=== PATIENT | female | born 1975 | race Caucasian/White ===

== ENCOUNTER 2021-02-17 12:20 | Inpatient (IN) | payer BC, SELFPAY ==
[2021-02-17] VITALS (10 sets, daily range): BP systolic 140–161; BP diastolic 93–118; PULSE 82–102; RESP 16–21; TEMP 36.1–36.7; O2SAT 87–99; BMI 28.3; BMI 28.4; BMI 27.6
--- NOTE | 2021-02-17 12:25 | EKG12_ITS ---
Test Reason : Blood Pressure : / mmHG Vent. Rate : 074 BPM Atrial Rate : 074 BPM P-R Int : 108 ms QRS Dur : 084 ms QT Int : 382 ms P-R-T Axes : 033 067 058 degrees QTc Int : 424 ms Sinus rhythm with short NM Otherwise normal ECG Confirmed by ASHKAN ROWLAND, ELISEO ([id number]), editorial specialist COLEEN ONTIVEROS ([id number]) on 02/19/2021 11:21:16 AM Referred By: JODY Confirmed By:ELISEO LUTHER MD
--- NOTE | 2021-02-17 12:50 | RAD_ITS ---
STUDY: X-RAY CHEST REASON FOR EXAM: Female, 45 years old. SOB TECHNIQUE: PA and lateral views of the chest. COMPARISON: None. FINDINGS: There is hyperinflation of the lungs consistent with chronic obstructive lung disease (COPD). Decreased bronchovascular markings in the right upper lobe suggestive of a bullous formation. There is no demonstrated pleural abnormality. Normal size heart. Normal mediastinum and jorge alberto. Normal visualized pulmonary arteries. Normal visualized aortic arch and descending thoracic aorta. Normal visualized thoracic spine. Prior laminectomy and fusion in the lower cervical spine. There is no demonstrated abnormality of the visualized soft tissue structures of the upper abdomen. RAD/Chest PA and Lateral IMPRESSION: Hyperinflation. The lungs are clear. Electronically Signed: Luis Gomez MD at 13:04 EDT , Service support ,
[2021-02-17] MEDS: Ipratropium/Albuterol Sulfate 3 ML AMPUL.NEB INHALATION (14:58)
[2021-02-17] MEDS: Albuterol 2.5 MG/3 ML VIAL.NEB. INHALATION ×2 (15:10→15:48)
[2021-02-17] MEDS: predniSONE 20 MG Tablet 40 MG PO (15:22)
--- NOTE | 2021-02-17 16:02 | EKG12_ITS ---
Test Reason : REPEAT Blood Pressure : / mmHG Vent. Rate : 083 BPM Atrial Rate : 083 BPM P-R Int : 108 ms QRS Dur : 084 ms QT Int : 342 ms P-R-T Axes : 084 062 047 degrees QTc Int : 401 ms Sinus rhythm with short MT with Premature atrial complexes with Aberrant conduction Possible Left atrial enlargement Nonspecific ST abnormality Abnormal ECG Confirmed by ASHKAN ROWLAND, ELISEO ([id number]), state editor COLEEN ONTIVEROS ([id number]) on 02/19/2021 11:19:10 AM Referred By: JODY Confirmed By:ELISEO LUTHER MD
--- NOTE | 2021-02-17 16:02 | ED.VIS.DYS ---
History of Present Illness Chief Complaint: Shortness of Breath Informant: Patient Onset: - Activity at onset: Exertion - Progressively worse and now wheezing at rest Timing: Continuous Quality: Wheezing Current Severity: Moderate Maximum Severity: Moderate Worsened by: Coughing, Exertion. Not Worsened By: Lying flat Relieved by: Rest. 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 Negative for: Fever Chest Pain: Tightness Narrative: 45-year-old female feels like her asthma has been progressively getting worse but she has had a significant cough with it. No fevers or chills, no loss of taste or smell, no myalgias, no rashes, no GI symptoms of diarrhea. No contact with Covid that she knows of, she has not had a, nor has she been vaccinated. States she works outside and usually by herself. Patient states she already was prescribed a Z-Luis for this and it did not help anything at all. - Past Medical History (1) Asthma Status: Chronic (2) GERD (gastroesophageal reflux disease) Status: Chronic (3) Fatty liver Status: Chronic Past Medical History - Allergies and Home Meds Allergies/Adverse Reactions: Allergies shellfish derived Allergy (Verified 02/17/21 12:25) Anaphylaxis Primary Care Physician: Kathy Barker MD [Primary Care Provider] - Smoking Status: Current every day smoker Review of Systems General: Reports: Malaise. Denies: Chills, Fever, Sweats Eyes: Denies: Visual changes - bilaterally, Diplopia ENT: Denies: Rhinorrhea, Sore throat Cardiovascular: Reports: Chest pain - Non-pleuritic tightness. Denies: Palpitations Respiratory: Reports: Dyspnea, Cough - With bronchospasm, Dyspnea on exertion. Denies: Sputum Gastrointestinal: Denies: Abdominal pain, Nausea, Vomiting, Diarrhea, Melena, Hematochezia Genitourinary: Denies: Dysuria, Hematuria, Frequency Musculoskeletal: Denies: Back pain, Extremity Pain Skin: Denies: Rash, Wounds Neurological: Denies: Headache, Weakness, Numbness Physical Exam Vital Signs/Narrative: Vital Signs Temp Pulse Resp BP Pulse Ox 02/17/21 15:11 18 92 02/17/21 14:59 102 H 16 94 02/17/21 14:30 18 93 02/17/21 12:22 97.0 F L 91 18 161/118 H 93 Inital Vital Signs reviewed: Yes General: Well nourished, Well developed, No Acute Distress Head: Normocephalic, Atraumatic Eyes: Perrl, EOMI ENT: Moist mucous membranes, No rhinorrhea Neck: Supple, Nontender Cardiovascular: Regular rate, Regular rhythm, No murmurs Respiratory: No distress, Chest nontender, Wheezing. Negative for: Rales, Rhonchi Abdomen: Soft, Nontender, Nondistended, Normal bowel sounds Back: Nontender, Normal Inspection Extremities: Nontender, No edema Skin: Normal color, No rash Neurological: Alert, Oriented x3, Cranial nerves II-XII grossly intact, Normal Strength, Normal Sensation Psychological: Normal affect, Normal Mood Diagnostic/Tx/Re-eval - Rhythm Strip Rhythm Strip: Sinus Rhythm Rate: 83 Ectopy: PVC(s), PAC(s) - EKG Initial EKG Interpretation: Sinus Rhythm, No Acute Injury Pattern, - - PACs and PVCs w/ compensatory pauses Prior: No Prior Treatment - Dyspnea: Oxygen, Albuterol, Atrovent, Steroid Repeat Evaluation: Improved - But pulse oximetry decreased to 86% on room air. - Medical Decision Making Given the patient improved but became hypoxemic as a result, further work-up was entertained. As above it is unremarkable. Patient does not have any sign of pneumonia, acute cardiac etiology, or pulmonary embolus given her D-dimer is negative. Additionally, her rapid Covid was negative. In my opinion, this is not sensitive enough to rule out Covid given her symptoms, so PCR is sent. Given her persistent hypoxemia, plan is to admit her to the floor to observation, if this is asthma related then she should have improved oxygenation tomorrow after the steroids are working. Certainly wheezy bronchitis without asthma/reactive airway is possible as well. ED Disposition - Plan for ED Patient: Disposition: Acute Care Hospital [facility] Diagnosis: Acute bronchitis with bronchospasm, Hypoxemia, Asthma exacerbation Referrals: Kathy Barker MD [Primary Care Provider] -
--- NOTE | 2021-02-17 16:04 | CPS ---
Patient's sats dropped down to 87, Dr aware. Patient placed on 2lpm.
--- NOTE | 2021-02-17 16:15 | NURSING ---
NO OLD EKGS
[2021-02-17 16:33] LABS: Basophil# 0.06 X10^3/uL; Basophil% 0.6 % (0-1); Eosinophil# 0.21 X10^3/uL; Eosinophils% 2.3 % (0-5); Hematocrit 49.7 % (37-47); Hemoglobin 16.2 g/dL (12.0-15.0); Lymphocyte % 25.8 % (19-41); Mean Corp Hgb Conc 32.6 g/dL (32-36); Mean Corpuscular Hgb 30.5 pg (27.0-32.0); Mean Corpuscular Volume 93.4 fL (81-99); Mean Platelet Vol. 9.4 fl (6.2-12.0); Monocyte# 0.66 X10^3/uL; Monocyte% 7.1 % (0-10); NRBC Flagged by Analyzer 0 % (0-5); Neutrophil # 5.95 X10^3/uL (2.7-7.7); Neutrophil % 63.9 % (47-70); Platelet Count 347 K/mm3 (150-450); RBC Distribution Width CV 12.2 % (11.6-14.6); RBC Distribution Width SD 42.2 fl (35.1-43.9); Red Blood Count 5.32 M/mm3 (4.2-5.4); White Blood Count 9.3 K/mm3 (4.4-11.0)
[2021-02-17 16:53] LABS: D-Dimer Quantitative (DVT/PE) <= 0.27 FEU/ug/m (0.27-0.49)
[2021-02-17 16:56] LABS: Anion Gap 7 (5-15); BUN 8 mg/dL (7-18); BUN/Creat Ratio 11.7 RATIO (10-20); Calcium,Total 9.4 mg/dL (8.5-10.1); Chloride 104 mmol/L (98-107); Creatinine, Serum 0.68 mg/dL (0.55-1.02); EST Glomerular Filtration Rate 99 mL/min (>60); Est Glom Filt Rate - Afr Amer 119 mL/min (>60); Estimated Creatinine Clearance 93.02 ml/min; Glucose 98 mg/dL (74-106); Potassium 3.2 mmol/L (3.5-5.1); Sodium Level 139 mmol/L (136-145)
--- NOTE | 2021-02-17 17:26 | PCM.HP.STD ---
<Jayna Marino WAX POURER - Last Filed: 02/17/21 17:43> Problem List (1) Asthma exacerbation Status: Acute (2) Hypoxemia Status: Acute (3) Asthma Status: Chronic (4) Fatty liver Status: Chronic (5) GERD (gastroesophageal reflux disease) Status: Chronic History of Present Illness Date of Admission: 02/17/21 Chief Complaint: Shortness of breath, cough. The patient is a 45 year old F who presents to the Emergency Room due to shortness of breath, cough. Patient states her symptoms started about 10 days ago. She has had some nasal drainage and thought her symptoms were allergy related. She denies exposure to sick contacts. Patient reports harsh, nonproductive cough. Complains of rib pain from coughing. Denies change in taste/smell. She has been using inhalers/aerosols at home without improvement in symptoms. She is a past medical history of asthma and states she has very infrequent exacerbations. She has a smoking history and states she quit 2 weeks ago. Her other past medical history includes GERD. Denies other medical history. Past Medical History Past Medical History (Chronic Problems): Chronic Problems Asthma (Chronic) GERD (gastroesophageal reflux disease) (Chronic) Fatty liver (Chronic) Allergies shellfish derived Allergy (Verified 02/17/21 12:25) Anaphylaxis Home Medications: Ambulatory Orders Medication Instructions Recorded Esomeprazole Mag Trihydrate 40 mg PO DAILY 02/17/21 [Nexium] Estradiol 0.5 mg PO DAILY 02/17/21 Meloxicam [Mobic] 15 mg PO DAILY 02/17/21 Surgical History: - - cervical spine surgery, hernia repair X2, hysterectomy. 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 Denies: Sputum production Gastrointestinal: Denies: Abdominal Pain, Nausea, Vomiting Genitourinary: Denies: Dysuria Musculoskeletal: Denies: Joint Pain, Joint Tenderness Skin: Denies: Rash, Wounds Neurological: Denies: Numbness, Tingling, Focal weakness Psychiatric: Denies: Anxiety, Depression, Homicidal Ideations, Suicidal Ideations Hematologic/ Lymphatic: Denies: Easy Bruising, Easy Bleeding VTE Information - Inpt Only VTE Present on Admission: No VTE Mechan Device Prophylaxis: None VTE Pharm Prophylaxis ordered?: No Reason prophylaxis not ordered:: Treatment Not Indicated Patient Problems: Active and Suspected Problems Hypoxemia (Acute) Asthma exacerbation (Acute) - Physical Exam Vitals/I&O's: Vital Signs Temp Pulse Resp BP Pulse Ox 97.0 F L 102 H 18 161/118 H 87 02/17/21 12:22 02/17/21 14:59 02/17/21 15:11 02/17/21 12:22 02/17/21 16:00 Oxygen Delivery Method Room Air Weight: 170 lb 6.677 oz Body Mass Index (BMI) 28.3 General: Alert, Oriented x3, Cooperative HEENT: Atraumatic, PERRLA, EOMI, Normocephalic Neck: Supple, No JVD, Negative Carotid Bruits Lungs: Diminished, Wheezes Cardiovascular: Regular Rhythm, No murmurs, Tachycardic Abdomen: Bowel Sounds Present, Soft, Non Tender, Non-Distended Extremities: No clubbing, No cyanosis, No edema, Capillary Refill Less than 3 Seconds Skin: No rashes, No breakdown Musculoskeletal: No Tenderness to Palpation of Joints or Extremities Neurological: Cranial nerves II-XII grossly intact, Neuro grossly intact Psych/Mental Status: Normal Affect, Appropriate Microbiology Past 72 Hours 02/17/21 15:15 Nasal Secretion SARS-CoV-2 Antigen (Rapid) - Final Laboratory Results 02/17/21 16:15: WBC 9.3, RBC 5.32, Hgb 16.2 H, Hct 49.7 H, MCV 93.4, MCH 30.5, MCHC 32.6, RDW Std Deviation 42.2, RDW Coeff of Shane 12.2, Plt Count 347, MPV 9.4, Immature Gran % (Auto) 0.300, Neut % (Auto) 63.9, Lymph % (Auto) 25.8, Mcdonald % (Auto) 7.1, Eos % (Auto) 2.3, Baso % (Auto) 0.6, Absolute Neuts (auto) 6.0, Absolute Lymphs (auto) 2.40, Nucleated RBC % 0 02/17/21 16:15: D-Dimer Quant (PE/DVT) <= 0.27 02/17/21 16:15: Sodium 139, Potassium 3.2 L, Chloride 104, Carbon Dioxide 28.0, Anion Gap 7, BUN 8, Creatinine 0.68, Estim Creat Clear Calc 93.02, Est GFR (MDRD) Af Amer 119, Est GFR (MDRD) Non-Af 99, BUN/Creatinine Ratio 11.7, Glucose 98, Calcium 9.4, Troponin I < 0.015 Assessment/Plan All Active Problems Hypoxemia (Acute) Asthma exacerbation (Acute) 1. Acute hypoxia secondary to acute exacerbation of asthma-Covid negative. Oxygen in ER 87% on room air. Checks x-ray without infiltrate or acute process. Albuterol DuoNeb aerosols. IV Solu-Medrol. Continue supplemental oxygen to maintain O2 at above 90%. 2. Hypertensive urgency-blood pressure in ER 190 systolically. No history of hypertension. Suspect secondary to acute illness. As needed hydralazine for systolic blood pressure greater than 160. If blood pressure remains elevated, consider initiation of oral regimen. 3. Tobacco dependence-quit 2 weeks ago. Encouraged continued cessation. 4. GERD-continue PPI. DVT prophylaxis-not indicated, low risk This patient was seen by JESSICA Olivas under the supervision of Dr. العلي. <Rachna العلي - Last Filed: 02/17/21 19:00> History of Present Illness The patient is a 45 year old F [] Past Medical History Allergies shellfish derived Allergy (Verified 02/17/21 12:25) Anaphylaxis - Physical Exam Vitals/I&O's: Vital Signs Temp Pulse Resp BP Pulse Ox 98.1 F 92 18 144/93 H 99 02/17/21 18:53 02/17/21 18:53 02/17/21 18:53 02/17/21 18:53 02/17/21 18:53 Oxygen Flow Rate (L/min) 2 Oxygen Delivery Method Room Air Weight: 170 lb 6.677 oz Body Mass Index (BMI) 28.3 Microbiology Past 72 Hours 02/17/21 15:15 Nasal Secretion SARS-CoV-2 Antigen (Rapid) - Final Laboratory Results 02/17/21 16:15: WBC 9.3, RBC 5.32, Hgb 16.2 H, Hct 49.7 H, MCV 93.4, MCH 30.5, MCHC 32.6, RDW Std Deviation 42.2, RDW Coeff of Shane 12.2, Plt Count 347, MPV 9.4, Immature Gran % (Auto) 0.300, Neut % (Auto) 63.9, Lymph % (Auto) 25.8, Mcdonald % (Auto) 7.1, Eos % (Auto) 2.3, Baso % (Auto) 0.6, Absolute Neuts (auto) 6.0, Absolute Lymphs (auto) 2.40, Nucleated RBC % 0 02/17/21 16:15: D-Dimer Quant (PE/DVT) <= 0.27 02/17/21 16:15: Sodium 139, Potassium 3.2 L, Chloride 104, Carbon Dioxide 28.0, Anion Gap 7, BUN 8, Creatinine 0.68, Estim Creat Clear Calc 93.02, Est GFR (MDRD) Af Amer 119, Est GFR (MDRD) Non-Af 99, BUN/Creatinine Ratio 11.7, Glucose 98, Calcium 9.4, Troponin I < 0.015 02/17/21 17:40: COVID-19 ([facility]) Pending Current Medications Sodium Chloride (0.9% Saline Lock 10 Ml Syringe) 10 - 40 ml IV UD PRN PRN Reason: SALINE FLUSH Assessment/Plan Hospitalist note: I am seeing this patient in conjunction with Jayna Marino. I independently seen and examined the patient. History and physical, laboratory data and imaging studies reviewed and I concur with the above admission and treatment plan. Patient presented to the ED because of shortness of breath that has been going on for 10 days, both exertional and at rest, associated with dry cough, wheezing as well as nasal drainage and without aggravating or relieving factors. She mentioned that she called her PCPs office early last week and she was given prescription for Z-Luis. She completed Z-Luis this past Wednesday without improvement. She denied fever or chills. She has been using inhalers and sometimes nebulizer treatment at home without improvement. In the emergency department, patient was tachycardic, afebrile, initial pulse ox was 93% on room air. She received breathing treatment and her pulse ox came down to 87% on room air. Her routine blood work was remarkable for potassium of 3.2, otherwise normal. Chest x-ray showed no acute findings. D-dimer was normal. COVID-19 antigen was negative. She is being admitted for asthma exacerbation for treatment. - Physical Exam General: Alert, Oriented x3, Cooperative, No apparent distress. HEENT: Atraumatic, PERRLA, EOMI. Neck: Supple, No JVD, Negative Carotid Bruits, Trachea Midline, Thyroid Normal. Lungs: Decreased breath sounds bilateral, occasional expiratory wheezes, no rhonchi or crackles. Cardiovascular: Regular rate, Regular Rhythm, Normal S1, Normal S2, PMI Normal, tachycardia. Abdomen: Bowel Sounds Present, Soft, Non Tender, Non-Distended, No Hepato-splenomegaly. Extremities: No clubbing, No cyanosis, No edema Skin: No rashes, No breakdown Neurological: Cranial nerves are intact, neuro grossly intact Assessment and plan: #1 acute asthma exacerbation/hypoxia: Chest x-ray showed no acute findings. Patient received Z-Luis as outpatient without improvement. She is afebrile, no leukocytosis. COVID-19 antigen was negative, PCR is pending. Plan: Admit to [facility] for observation, cardiac monitoring, DuoNeb every 6 hours, albuterol as needed, IV Solu-Medrol, Robitussin as needed, awaiting COVID-19 PCR test results, incentive spirometer, ambulatory pulse oximetry tomorrow morning. #2 hypokalemia: Replace potassium with p.o. K. Dur 60 mEq p.o. x1. #3 other chronic medical problems: Stable, continue current medications as above. This note was generated with Active [employer] software. It may contain incorrect words, spelling, and punctuation that were not noted in checking the note before signing. OBSV E&M: [id number] Initial observation care L2
--- NOTE | 2021-02-17 17:36 | NURSING ---
311 ASHELFAH ASTHMA EXAC, HYPOXEMIA
--- NOTE | 2021-02-17 17:36 | ED.RN ---
PCR COVID ORDERED. PT NOT TO GO TO FLOOR UNTIL THAT HAS RESULTED
[2021-02-17] MEDS: 0.9% Normal Saline 1,000 ML 75 ML IV (21:55)
[2021-02-17] MEDS: guaiFENesin 10 ML UDC (200MG/10ML) PO (22:01)
[2021-02-17] MEDS: Potassium Chloride Oral Tablet 20 MEQ 60 MEQ PO (22:01)
[2021-02-18] VITALS (13 sets, daily range): BP systolic 136–145; BP diastolic 81–93; PULSE 65–96; RESP 18; TEMP 36.4–36.7; O2SAT 88–94
[2021-02-18] MEDS: guaiFENesin 10 ML UDC (200MG/10ML) PO (04:00)
[2021-02-18] MEDS: Ipratropium/Albuterol Sulfate 3 ML AMPUL.NEB INHALATION ×3 (06:55→18:56)
--- NOTE | 2021-02-18 09:15 | PN_ITS ---
<Jayna Marino CURRICULUM ADVISORY TEACHER - Last Filed: 02/18/21 09:21> Patient Problems: Active and Suspected Problems Acute bronchitis with bronchospasm (Acute) Hypoxemia (Acute) Asthma exacerbation (Acute) Subjective: Patient seen and examined. Continues to have cough, wheezing. Oxygen increased to 3 L nasal cannula as she was 88% on 2 L. - Physical Exam Vitals/I&O's: Vital Signs Temp Pulse Resp BP Pulse Ox 97.8 F 96 18 136/93 H 89 02/18/21 08:09 02/18/21 08:09 02/18/21 08:09 02/18/21 08:09 02/18/21 08:09 Oxygen Flow Rate (L/min) 2 Oxygen Delivery Method Nasal Cannula Weight: 166 lb 3.657 oz Body Mass Index (BMI) 27.6 Intake and Output for Last 24 Hours 02/16/21 02/17/21 02/18/21 23:59 23:59 23:59 Output Total 400 / 400 Balance -400 / -400 General: Alert, Oriented x3, Cooperative HEENT: Atraumatic, PERRLA, EOMI, Normocephalic Neck: Supple, No JVD, Negative Carotid Bruits Lungs: Diminished, Wheezes Cardiovascular: Regular rate, No murmurs Abdomen: Bowel Sounds Present, Soft, Non Tender, Non-Distended Extremities: No clubbing, No cyanosis, No edema, Capillary Refill Less than 3 Seconds Skin: No rashes, No breakdown Musculoskeletal: No Tenderness to Palpation of Joints or Extremities Neurological: Cranial nerves II-XII grossly intact, Neuro grossly intact Psych/Mental Status: Normal Affect, Appropriate Microbiology Past 72 Hours 02/17/21 15:15 Nasal Secretion SARS-CoV-2 Antigen (Rapid) - Final Laboratory Results 02/17/21 16:15: WBC 9.3, RBC 5.32, Hgb 16.2 H, Hct 49.7 H, MCV 93.4, MCH 30.5, MCHC 32.6, RDW Std Deviation 42.2, RDW Coeff of Shane 12.2, Plt Count 347, MPV 9.4, Immature Gran % (Auto) 0.300, Neut % (Auto) 63.9, Lymph % (Auto) 25.8, [place] % (Auto) 7.1, Eos % (Auto) 2.3, Baso % (Auto) 0.6, Absolute Neuts (auto) 6.0, Absolute Lymphs (auto) 2.40, Nucleated RBC % 0 02/17/21 16:15: D-Dimer Quant (PE/DVT) <= 0.27 02/17/21 16:15: Sodium 139, Potassium 3.2 L, Chloride 104, Carbon Dioxide 28.0, Anion Gap 7, BUN 8, Creatinine 0.68, Estim Creat Clear Calc 93.02, Est GFR (MDRD) Af Amer 119, Est GFR (MDRD) Non-Af 99, BUN/Creatinine Ratio 11.7, Glucose 98, Calcium 9.4, Troponin I < 0.015 02/17/21 17:40: COVID-19 ([facility]USA) Not Detected Current Medications Acetaminophen (Acetaminophen 325 Mg Tablet) 650 mg PO Q6H PRN PRN PRN Reason: Pain Score 1-10/Temp > 100.7 F Albuterol Sulfate (Albuterol 2.5 Mg/3 Ml Vial.Neb.) 2.5 mg INHALATION Q2H PRN PRN PRN Reason: Shortness of Breath/Wheezing Albuterol/Ipratropium (Ipratropium/Albuterol Sulfate 3 Ml Ampul.Neb) 3 ml INHALATION Q6HWA.RT [facility] Last Admin: 02/18/21 06:55 Dose: 3 ml Documented by: Estradiol (Estradiol 0.5 Mg Tablet) 0.5 mg PO DAILY [facility] Guaifenesin (Guaifenesin 10 Ml Udc (200mg/10ml)) 10 ml PO Q6H PRN PRN PRN Reason: Cough, congestion Last Admin: 02/18/21 04:00 Dose: 10 ml Documented by: Hydralazine HCl (Hydralazine 20 Mg/Ml Vial) 10 mg IV Q4H PRN PRN PRN Reason: BLOOD PRESSURE Sodium Chloride () 1,000 mls @ 75 mls/hr IV .[id number] [facility] Stop: 02/18/21 10:29 Last Admin: 02/17/21 21:55 Dose: 75 mls/hr Documented by: Loratadine (Loratadine 10 Mg Tablet) 10 mg PO DAILY [facility] Methylprednisolone (Methylprednisolone 40 Mg/Ml Vial) 40 mg IV Q8 [facility] Last Admin: 02/18/21 05:39 Dose: 40 mg Documented by: Ondansetron HCl (Ondansetron 4 Mg/2 Ml Vial) 4 mg IV Q8H PRN PRN PRN Reason: NAUSEA/VOMITING Pantoprazole Sodium (Pantoprazole Sodium 40 Mg Tablet) 40 mg PO DAILY [place] Sodium Chloride (0.9% Saline Lock 10 Ml Syringe) 10 - 40 ml IV UD PRN PRN Reason: SALINE FLUSH Zolpidem Tartrate (Zolpidem Tartrate 5 Mg Tablet) 5 mg PO QHS PRN PRN PRN Reason: INSOMNIA Medical Necessity - Tobacco Use Smoking Status: Former smoker Tobacco Use: Cigarettes Assessment/Plan All Active Problems Acute bronchitis with bronchospasm (Acute) Hypoxemia (Acute) Asthma exacerbation (Acute) 1. Acute hypoxia secondary to acute exacerbation of asthma-Covid negative. Checks x-ray without infiltrate or acute process. Albuterol DuoNeb aerosols. IV Solu-Medrol. Continue supplemental oxygen to maintain O2 at above 90%. Increased to 3 L nasal cannula as patient was 88% on 2 L. As needed Tessalon Perles and scheduled Mucinex for cough. 2. Elevated blood pressure without history of hypertension-Suspect secondary to acute process. As needed hydralazine for systolic blood pressure greater than 160. If blood pressure remains elevated, consider initiation of oral regimen. 3. Tobacco dependence-quit 2 weeks ago. Encouraged continued cessation. 4. GERD-continue PPI. DVT prophylaxis-ambulatory, low risk This patient was seen by JESSICA Olivas under the supervision of Dr. Grant. <Shirley Grant - Last Filed: 02/18/21 13:32> - Physical Exam Vitals/I&O's: Vital Signs Temp Pulse Resp BP Pulse Ox 97.8 F 82 18 136/93 H 89 02/18/21 08:09 02/18/21 11:29 02/18/21 08:09 02/18/21 08:09 02/18/21 08:09 Oxygen Flow Rate (L/min) 2 Oxygen Delivery Method Nasal Cannula Weight: 75.4 kg Body Mass Index (BMI) 27.6 Intake and Output for Last 24 Hours 02/16/21 02/17/21 02/18/21 23:59 23:59 23:59 Intake Total 1560 / 1560 Output Total 400 / 400 Balance 1160 / 1160 Microbiology Past 72 Hours 02/17/21 15:15 Nasal Secretion SARS-CoV-2 Antigen (Rapid) - Final Laboratory Results 02/17/21 16:15: WBC 9.3, RBC 5.32, Hgb 16.2 H, Hct 49.7 H, MCV 93.4, MCH 30.5, MCHC 32.6, RDW Std Deviation 42.2, RDW Coeff of Shane 12.2, Plt Count 347, MPV 9.4, Immature Gran % (Auto) 0.300, Neut % (Auto) 63.9, Lymph % (Auto) 25.8, [place] % (Auto) 7.1, Eos % (Auto) 2.3, Baso % (Auto) 0.6, Absolute Neuts (auto) 6.0, Absolute Lymphs (auto) 2.40, Nucleated RBC % 0 02/17/21 16:15: D-Dimer Quant (PE/DVT) <= 0.27 02/17/21 16:15: Sodium 139, Potassium 3.2 L, Chloride 104, Carbon Dioxide 28.0, Anion Gap 7, BUN 8, Creatinine 0.68, Estim Creat Clear Calc 93.02, Est GFR (MDRD) Af Amer 119, Est GFR (MDRD) Non-Af 99, BUN/Creatinine Ratio 11.7, Glucose 98, Calcium 9.4, Troponin I < 0.015 02/17/21 17:40: COVID-19 ([facility]) Not Detected 02/18/21 10:50: Sodium 139, Potassium 4.3, Chloride 105, Carbon Dioxide 26.0, Anion Gap 8, BUN 10, Creatinine 0.78, Estim Creat Clear Calc 81.10, Est GFR (MDRD) Af Amer 103, Est GFR (MDRD) Non-Af 85, BUN/Creatinine Ratio 12.9, Glucose 126 H, Calcium 9.1 Current Medications Acetaminophen (Acetaminophen 325 Mg Tablet) 650 mg PO Q6H PRN PRN PRN Reason: Pain Score 1-10/Temp > 100.7 F Albuterol Sulfate (Albuterol 2.5 Mg/3 Ml Vial.Neb.) 2.5 mg INHALATION Q2H PRN PRN PRN Reason: Shortness of Breath/Wheezing Albuterol/Ipratropium (Ipratropium/Albuterol Sulfate 3 Ml Ampul.Neb) 3 ml INHALATION Q6HWA.RT [facility] Last Admin: 02/18/21 06:55 Dose: 3 ml Documented by: Benzonatate (Benzonatate 100 Mg Capsule) 100 mg PO TID PRN PRN PRN Reason: COUGH Last Admin: 02/18/21 10:46 Dose: 100 mg Documented by: Estradiol (Estradiol 0.5 Mg Tablet) 0.5 mg PO DAILY [facility] Last Admin: 02/18/21 09:16 Dose: 0.5 mg Documented by: Guaifenesin (Guaifenesin 1,200 Mg Tablet) 1,200 mg PO BID [facility] Last Admin: 02/18/21 10:42 Dose: 1,200 mg Documented by: Hydralazine HCl (Hydralazine 20 Mg/Ml Vial) 10 mg IV Q4H PRN PRN PRN Reason: BLOOD PRESSURE Loratadine (Loratadine 10 Mg Tablet) 10 mg PO DAILY [facility] Last Admin: 02/18/21 09:16 Dose: 10 mg Documented by: Methylprednisolone (Methylprednisolone 40 Mg/Ml Vial) 40 mg IV Q8 [facility] Last Admin: 02/18/21 05:39 Dose: 40 mg Documented by: Ondansetron HCl (Ondansetron 4 Mg/2 Ml Vial) 4 mg IV Q8H PRN PRN PRN Reason: NAUSEA/VOMITING Pantoprazole Sodium (Pantoprazole Sodium 40 Mg Tablet) 40 mg PO DAILY [facility] Last Admin: 02/18/21 09:16 Dose: 40 mg Documented by: Sodium Chloride (0.9% Saline Lock 10 Ml Syringe) 10 - 40 ml IV UD PRN PRN Reason: SALINE FLUSH Last Admin: 02/18/21 10:42 Dose: 10 ml Documented by: Zolpidem Tartrate (Zolpidem Tartrate 5 Mg Tablet) 5 mg PO QHS PRN PRN PRN Reason: INSOMNIA Assessment/Plan This patient was seen in conjunction with Jayna Marino NP. I have independently interviewed and examined the patient and reviewed pertinent historical, laboratory, and other data. Please refer to her note for patient's presentation, findings, and recommendations. Patient was seen and examined. She complains of wheezing. Remains on 2 L of oxygen. Vitals were reviewed -stable Physical Exam: Gen: In mild distress, not pale, not jaundiced, alert oriented x3 CVS:HS I +II, regular, no murmurs RESP: Diminished at lung bases, generalized wheezes GI: BS present and normal, nontender, no palpable organs EXT:No edema Labs reviewed: ASSESSMENT: 1. Acute asthma exacerbation 2. Acute hypoxic respiratory insufficiency secondary to #1 3. Elevated blood pressure without hypertension 4. Nicotine dependence 5. GERD 6. Hypokalemia Meds reviewed Plan: Scheduled breathing treatments, IV Solu-Medrol Possible discharge in a.m. if patient improves Inpatient E&M: 30335 Subs Hosp L2
[2021-02-18] MEDS: Pantoprazole Sodium 40 MG Tablet PO (09:16)
[2021-02-18] MEDS: Loratadine 10 MG Tablet PO (09:16)
[2021-02-18] MEDS: Estradiol 0.5 MG Tablet PO (09:16)
[2021-02-18] MEDS: 0.9% Saline Lock 10 ML Syringe IV ×3 (10:42→21:56)
[2021-02-18] MEDS: guaiFENesin 1,200 MG Tablet 1200 MG PO ×2 (10:42→21:56)
[2021-02-18] MEDS: Benzonatate 100 MG Capsule PO (10:46)
[2021-02-18 11:27] LABS: Anion Gap 8 (5-15); BUN 10 mg/dL (7-18); BUN/Creat Ratio 12.9 RATIO (10-20); Calcium,Total 9.1 mg/dL (8.5-10.1); Chloride 105 mmol/L (98-107); Creatinine, Serum 0.78 mg/dL (0.55-1.02); EST Glomerular Filtration Rate 85 mL/min (>60); Est Glom Filt Rate - Afr Amer 103 mL/min (>60); Glucose 126 mg/dL (74-106); Potassium 4.3 mmol/L (3.5-5.1); Sodium Level 139 mmol/L (136-145)
[2021-02-19] VITALS (17 sets, daily range): BP systolic 113–124; BP diastolic 62–85; PULSE 76–112; RESP 16–20; TEMP 36.4–36.6; O2SAT 87–96
[2021-02-19] MEDS: Benzonatate 100 MG Capsule PO ×2 (02:07→07:09)
[2021-02-19] MEDS: 0.9% Saline Lock 10 ML Syringe IV ×3 (06:20→22:27)
[2021-02-19] MEDS: Ipratropium/Albuterol Sulfate 3 ML AMPUL.NEB INHALATION ×4 (07:39→19:14)
--- NOTE | 2021-02-19 08:13 | CT_ITS ---
STUDY: CTA CHEST REASON FOR EXAM: Female, 45 years old. Hypoxia. 10 day history of shortness of breath. Asthma. RADIATION DOSAGE (If Supplied By Facility): CTDIvol = ( 5.34 ) mGy, DLP = ( 259.65 ) mGycm TECHNIQUE: The examination was performed with the intravenous administration of IV 75mL [id number]. Post-processing of the angiographic images was performed, with multiplanar reformation and 3D reconstruction. Individualized dose optimization techniques were used for this CT. COMPARISON: Comparison is made with prior chest radiograph dated 02/17/2021. FINDINGS: Normal enhancement of the main pulmonary artery and right and left pulmonary arteries. Normal enhancement of the bilateral peripheral pulmonary arteries. There is no demonstrated pulmonary embolism. Normal thoracic aorta and visualized great vessels. There is no demonstrated aortic dissection. Normal heart and pericardium. Normal mediastinum. Normal hilar regions. Normal visualized trachea and bronchi. Hyperinflation. Emphysematous changes worse in the upper lobes with bullous formation more prominent in the right upper lobe. Calcified granuloma in the posterior aspect of the right lower lobe. Mild increased markings at the right lung base suggestive of atelectasis. Normal pleura. Normal chest wall structures. Normal osseous structures. Normal visualized upper abdomen. CT/CTA Chest W/WO Contrast IMPRESSION: Hyperinflation and emphysematous changes worse in the upper lobes with bullous changes more prominent in the right upper lobe. No evidence of pulmonary embolism. Electronically Signed: Luis Gomez MD at 9:05 EDT , Service support ,
[2021-02-19] MEDS: Estradiol 0.5 MG Tablet PO (10:22)
[2021-02-19] MEDS: guaiFENesin 1,200 MG Tablet 1200 MG PO ×2 (10:22→22:27)
[2021-02-19] MEDS: Loratadine 10 MG Tablet PO (10:22)
[2021-02-19] MEDS: Pantoprazole Sodium 40 MG Tablet PO (10:23)
--- NOTE | 2021-02-19 10:24 | PCM.DC ---
- Discharge Diagnoses Current Active Problems: Current Active and Chronic Problems Acute bronchitis with bronchospasm (Acute) Asthma (Chronic) GERD (gastroesophageal reflux disease) (Chronic) Fatty liver (Chronic) Hypoxemia (Acute) Asthma exacerbation (Acute) You will use the following diet at home:: No restrictions Discharge Activity: Return to Normal Activity Call your doctor if you observe: Fever of 101 or Higher, Shortness of breath, Dizziness, Fainting spells, Chest pain Additional Instructions: Recommend obtaining pulse oximeter. Titrate home oxygen to maintain O2 above 90%. Allergies/Adverse Reactions: Allergies shellfish derived Allergy (Verified 02/17/21 12:25) Anaphylaxis Medications to take at Discharge Esomeprazole Mag Trihydrate [Nexium] 40 mg PO DAILY 02/17/21 Estradiol 0.5 mg PO DAILY 02/17/21 Meloxicam [Mobic] 15 mg PO DAILY 02/17/21 Albuterol Inhaler [Ventolin Hfa] 1 - 2 puff INHALATION Q4H PRN PRN #1 inhaler 02/19/21 Cetirizine HCl [Zyrtec] 10 mg PO DAILY #30 capsule 02/19/21 Prednisone See Taper PO DAILY #30 tablet 02/19/21 busPIRone [Buspar] 10 mg PO BID #120 tab 02/19/21 The following prescriptions were given: busPIRone [Buspar] 10 mg PO BID #120 tab Transmission Status: Pending to [facility] #30 Prednisone See Taper PO DAILY #30 tablet Transmission Status: Pending to [facility] #30 Albuterol Inhaler [Ventolin Hfa] 1 - 2 puff INHALATION Q4H PRN PRN #1 inhaler PRN Reason: Shortness Of Breath Transmission Status: Pending to [facility]30 Cetirizine HCl [Zyrtec] 10 mg PO DAILY #30 capsule Transmission Status: Pending to [facility] #30 Test Results: Test results from this visit will be discussed in further detail at your follow-up appointment, if applicable. Please Follow Up With: Marko Hinds MD - PCP When: 1 Week Please Follow Up With: Mely Boswell NP, [employer] MANAGER-C - Pulmonary Medicine When: 1 Week Proposed Discharge Date: 02/19/21
--- NOTE | 2021-02-19 10:28 | DS.PCM_ITS ---
<Jayna Marino METAL FORGER'S ASSISTANT - Last Filed: 02/19/21 10:48> Discharge Date and Diagnosis - Problem List Patient Problems: Active and Suspected Problems Acute bronchitis with bronchospasm (Acute) Insufficiency, respiratory, acute (Acute) Hypoxemia (Acute) Asthma exacerbation (Acute) Date of Admission: 02/17/21 Date of Discharge: 02/19/21 - Primary Discharge Diagnosis Acute Problems: Active Problems 1. Acute hypoxic respiratory insufficiency secondary to acute exacerbation of asthma 2. Elevated blood pressure without history of hypertension-resolved 3. Tobacco dependence 4. GERD 5. Anxiety - Secondary Discharge Diagnosis Chronic Problems: Chronic Problems Asthma (Chronic) GERD (gastroesophageal reflux disease) (Chronic) Fatty liver (Chronic) Hospital Course and Treatment Imaging Results: Diagnostic Data Chest X-Ray 02/17/21 12:50 IMPRESSION: Hyperinflation. The lungs are clear. Electronically Signed: Luis Goemz MD at 13:04 EDT , Service support , Chest CTA 02/19/21 08:13 IMPRESSION: Hyperinflation and emphysematous changes worse in the upper lobes with bullous changes more prominent in the right upper lobe. No evidence of pulmonary embolism. Electronically Signed: Luis Gomez MD at 9:05 EDT , Service support , Dr. Pena- Pulmonary medicine Operations: None Procedures: None Summary of Care Provided: The patient is a 45 year old F admitted 02/17/21 due to shortness of breath and cough. 1. Acute hypoxic respiratory insufficiency secondary to acute exacerbation of asthma/COPD-Covid negative. Checks x-ray without infiltrate or acute process. Albuterol DuoNeb aerosols. IV Solu-Medrol during admission. CTA demonstrates hyperinflation and emphysematous changes, no PE or other acute process. Patient will require supplemental oxygen at discharge, she is ambulatory in the home. Continue supplement oxygen to maintain O2 at above 90%. Pulmonary medicine consulted prior to discharge for ongoing outpatient follow-up. Follow-up with pulmonary medicine in 1 week. Follow-up with PCP in 1 week as well. Instructed patient to obtain pulse oximeter and titrate oxygen to maintain O2 at or above 90%. Patient not previously diagnosed with COPD however due to CTA changes, will need outpatient pulmonary function test/outpatient evaluation and management. 2. Elevated blood pressure without history of hypertension-Suspect secondary to acute process. Resolved without intervention. 3. Tobacco dependence-quit 2 weeks ago. Encouraged continued cessation. 4. GERD-continue PPI. 5. Anxiety-patient reports social stressors and states that she goes back to smoking during times of increased stress. Initiated on BuSpar 10 mg twice daily which can be titrated as outpatient. Patient recently moved to [place] and would like to establish with local PCP. Referred to Dr. Hinds. General: Alert, Oriented x3, Cooperative HEENT: Atraumatic, PERRLA, EOMI, Normocephalic Neck: Supple, No JVD, Negative Carotid Bruits Lungs: Diminished, Wheezes Cardiovascular: Regular rate, No murmurs Abdomen: Bowel Sounds Present, Soft, Non Tender, Non-Distended Extremities: No clubbing, No cyanosis, No edema, Capillary Refill Less than 3 Seconds Skin: No rashes, No breakdown Musculoskeletal: No Tenderness to Palpation of Joints or Extremities Neurological: Cranial nerves II-XII grossly intact, Neuro grossly intact Psych/Mental Status: Normal Affect, Appropriate Patient seen and examined prior to discharge. Physical assessment as noted above. Patient is stable for discharge with follow up recommendations as noted above. This patient was seen by JESSICA Olivas under the supervision of Dr. Grant. Patient Problems: Active and Suspected Problems Acute bronchitis with bronchospasm (Acute) Insufficiency, respiratory, acute (Acute) Hypoxemia (Acute) Asthma exacerbation (Acute) - Physical Exam Vitals/I&O's: Vital Signs Temp Pulse Resp BP Pulse Ox 97.8 F 91 18 118/78 90 02/19/21 08:00 02/19/21 08:00 02/19/21 08:00 02/19/21 08:00 02/19/21 08:44 Oxygen Flow Rate (L/min) 3 Oxygen Delivery Method Nasal Cannula Weight: 166 lb 3.657 oz Body Mass Index (BMI) 27.6 Intake and Output for Last 24 Hours 02/17/21 02/18/21 02/19/21 23:59 23:59 23:59 Intake Total 1960 / 1960 700 / 700 Output Total 400 / 400 Balance 1560 / 1560 700 / 700 Microbiology Past 72 Hours 02/17/21 15:15 Nasal Secretion SARS-CoV-2 Antigen (Rapid) - Final Laboratory Results 02/18/21 10:50: Sodium 139, Potassium 4.3, Chloride 105, Carbon Dioxide 26.0, Anion Gap 8, BUN 10, Creatinine 0.78, Estim Creat Clear Calc 81.10, Est GFR (MDRD) Af Amer 103, Est GFR (MDRD) Non-Af 85, BUN/Creatinine Ratio 12.9, Glucose 126 H, Calcium 9.1 Current Medications Acetaminophen (Acetaminophen 325 Mg Tablet) 650 mg PO Q6H PRN PRN PRN Reason: Pain Score 1-10/Temp > 100.7 F Albuterol Sulfate (Albuterol 2.5 Mg/3 Ml Vial.Neb.) 2.5 mg INHALATION Q2H PRN PRN PRN Reason: Shortness of Breath/Wheezing Albuterol/Ipratropium (Ipratropium/Albuterol Sulfate 3 Ml Ampul.Neb) 3 ml INHALATION Q6HWA.RT [facility] Last Admin: 02/19/21 07:39 Dose: 3 ml Documented by: Benzonatate (Benzonatate 100 Mg Capsule) 100 mg PO TID PRN PRN PRN Reason: COUGH Last Admin: 02/19/21 07:09 Dose: 100 mg Documented by: Estradiol (Estradiol 0.5 Mg Tablet) 0.5 mg PO DAILY [facility] Last Admin: 02/19/21 10:22 Dose: 0.5 mg Documented by: Guaifenesin (Guaifenesin 1,200 Mg Tablet) 1,200 mg PO BID [facility] Last Admin: 02/19/21 10:22 Dose: 1,200 mg Documented by: Hydralazine HCl (Hydralazine 20 Mg/Ml Vial) 10 mg IV Q4H PRN PRN PRN Reason: BLOOD PRESSURE Loratadine (Loratadine 10 Mg Tablet) 10 mg PO DAILY [facility] Last Admin: 02/19/21 10:22 Dose: 10 mg Documented by: Methylprednisolone (Methylprednisolone 40 Mg/Ml Vial) 40 mg IV Q8 [facility] Last Admin: 02/19/21 06:20 Dose: 40 mg Documented by: Ondansetron HCl (Ondansetron 4 Mg/2 Ml Vial) 4 mg IV Q8H PRN PRN PRN Reason: NAUSEA/VOMITING Pantoprazole Sodium (Pantoprazole Sodium 40 Mg Tablet) 40 mg PO DAILY [facility] Last Admin: 02/19/21 10:23 Dose: 40 mg Documented by: Sodium Chloride (0.9% Saline Lock 10 Ml Syringe) 10 - 40 ml IV UD PRN PRN Reason: SALINE FLUSH Last Admin: 02/19/21 06:20 Dose: 10 ml Documented by: Zolpidem Tartrate (Zolpidem Tartrate 5 Mg Tablet) 5 mg PO QHS PRN PRN PRN Reason: INSOMNIA Discharge Diet: No Restrictions Discharge Activity: Return to Normal Activity Call your doctor if you observe: Fever of 101 or Higher, Shortness of breath, Dizziness, Fainting spells, Chest pain Home Medications: Medications to take at Discharge Esomeprazole Mag Trihydrate [Nexium] 40 mg PO DAILY 02/17/21 Estradiol 0.5 mg PO DAILY 02/17/21 Meloxicam [Mobic] 15 mg PO DAILY 02/17/21 Albuterol Inhaler [Ventolin Hfa] 1 - 2 puff INHALATION Q4H PRN PRN #1 inhaler 02/19/21 Cetirizine HCl [Zyrtec] 10 mg PO DAILY #30 capsule 02/19/21 Prednisone See Taper PO DAILY #30 tablet 02/19/21 busPIRone [Buspar] 10 mg PO BID #120 tab 02/19/21 Following Prescriptions Were Given to Patient: busPIRone [Buspar] 10 mg PO BID #120 tab Transmission Status: Received by [employer] #30 Prednisone See Taper PO DAILY #30 tablet Transmission Status: Received by [employer] Albuterol Inhaler [Ventolin Hfa] 1 - 2 puff INHALATION Q4H PRN PRN #1 inhaler PRN Reason: Shortness Of Breath Transmission Status: Received by [employer] Cetirizine HCl [Zyrtec] 10 mg PO DAILY #30 capsule Transmission Status: Received by [employer] Primary Care Physician: Kathy Barker MD [Primary Care Provider] - Please Follow Up With: Marko Hinds MD - PCP When: 1 Week Please Follow Up With: Mely Boswell NP, METAL FORGER'S ASSISTANT-C - Pulmonary Medicine When: 1 Week Disposition: Home Minutes spent on discharge:: 35 Patient Condition:: Stable Medical Necessity - Tobacco Use Smoking Status: Former smoker Tobacco Use: Cigarettes Meaningful Use Info Meaningful Use Diagnoses (Choose all that apply): None applicable <Shirley Grant - Last Filed: 02/20/21 16:32> Discharge Date and Diagnosis - Primary Discharge Diagnosis Acute Problems: Active Problems Acute bronchitis with bronchospasm (Acute) Insufficiency, respiratory, acute (Acute) Hypoxemia (Acute) Asthma exacerbation (Acute) - Secondary Discharge Diagnosis Chronic Problems: Chronic Problems Asthma (Chronic) GERD (gastroesophageal reflux disease) (Chronic) Fatty liver (Chronic) Hospital Course and Treatment Summary of Care Provided: This patient was seen in conjunction with Jayna Marino NP. I have independently interviewed and examined the patient and reviewed pertinent historical, laboratory, and other data. Please refer to her note for patient's presentation, findings, and recommendations. 45 year-old with past medical history of chronic smoking, history of asthma comes in with progressive shortness of breath and cough. Patient says her symptoms started 10 days prior with some nasal drainage which she thought with allergy related. She denied any change in sense of smell or taste. She denied any sick contact. She had been using inhalers without any improvement. She admits to quitting smoking 2 weeks prior. Her COVID-19 PCR test was negative. Patient was initially managed on oxygen, breathing treatment, IV Solu-Medrol for acute asthma exacerbation. She however continues to be on oxygen and CT of the chest done was negative for acute PE but showed emphysematous changes. Pulmonology was consulted; it was felt that patient was acute COPD exacerbation rather than asthma exacerbation. Patient remained on 2 L of oxygen. She was evaluated and qualified for discharge on home oxygen. Follow-up with your operations manager in the outpatient. She will continue on her prednisone taper. Physical Exam: Gen: Comfortable, not pale, not jaundiced, alert oriented x3, on 3L oxygen CVS:HS I +II, regular, no murmurs RESP: Diminished at lung bases GI: BS present and normal, nontender, no palpable organs EXT:No edema - Physical Exam Vitals/I&O's: Vital Signs Temp Pulse Resp BP Pulse Ox 98.6 F 106 H 18 124/83 H 93 02/20/21 15:01 02/20/21 15:01 02/20/21 15:01 02/20/21 15:01 02/20/21 15:01 Oxygen Flow Rate (L/min) [ 0 AMBULATING on Room Air] Oxygen Flow Rate (L/min) [ 3 AMBULATING with Oxygen #2] Oxygen Flow Rate (L/min) [At 2 REST with Oxygen] Oxygen Flow Rate (L/min) [ 4 AMBULATING with Oxygen #1] Oxygen Flow Rate (L/min) [At 0 REST on Room Air] Oxygen Flow Rate (L/min) 3 Oxygen Delivery Method Nasal Cannula Weight: 75.4 kg Body Mass Index (BMI) 27.6 Intake and Output for Last 24 Hours 02/18/21 02/19/21 02/20/21 23:59 23:59 23:59 Intake Total 1960 / 1960 1500 / 1500 2900 / 2900 Output Total 400 / 400 Balance 1560 / 1560 1500 / 1500 2900 / 2900 Microbiology Past 72 Hours 02/17/21 15:15 Nasal Secretion SARS-CoV-2 Antigen (Rapid) - Final Current Medications Acetaminophen (Acetaminophen 325 Mg Tablet) 650 mg PO Q6H PRN PRN PRN Reason: Pain Score 1-10/Temp > 100.7 F Last Admin: 02/20/21 05:55 Dose: 650 mg Documented by: Albuterol Sulfate (Albuterol 2.5 Mg/3 Ml Vial.Neb.) 2.5 mg INHALATION Q2H PRN PRN PRN Reason: Shortness of Breath/Wheezing Albuterol/Ipratropium (Ipratropium/Albuterol Sulfate 3 Ml Ampul.Neb) 3 ml INHALATION Q6HWA.RT [facility] Last Admin: 02/20/21 13:09 Dose: 3 ml Documented by: Benzonatate (Benzonatate 100 Mg Capsule) 100 mg PO TID PRN PRN PRN Reason: COUGH Last Admin: 02/20/21 05:56 Dose: 100 mg Documented by: Buspirone HCl (Buspirone 5 Mg Tablet) 10 mg PO BID [facility] Last Admin: 02/20/21 09:44 Dose: 10 mg Documented by: Estradiol (Estradiol 0.5 Mg Tablet) 0.5 mg PO DAILY [facility] Last Admin: 02/20/21 09:44 Dose: 0.5 mg Documented by: Guaifenesin (Guaifenesin 1,200 Mg Tablet) 1,200 mg PO BID [facility] Last Admin: 02/20/21 09:44 Dose: 1,200 mg Documented by: Hydralazine HCl (Hydralazine 20 Mg/Ml Vial) 10 mg IV Q4H PRN PRN PRN Reason: BLOOD PRESSURE Loratadine (Loratadine 10 Mg Tablet) 10 mg PO DAILY [facility] Last Admin: 02/20/21 09:44 Dose: 10 mg Documented by: Methylprednisolone (Methylprednisolone 40 Mg/Ml Vial) 40 mg IV Q8 [facility] Last Admin: 02/20/21 13:36 Dose: 40 mg Documented by: Ondansetron HCl (Ondansetron 4 Mg/2 Ml Vial) 4 mg IV Q8H PRN PRN PRN Reason: NAUSEA/VOMITING Pantoprazole Sodium (Pantoprazole Sodium 40 Mg Tablet) 40 mg PO DAILY [facility] Last Admin: 02/20/21 09:44 Dose: 40 mg Documented by: Sodium Chloride (0.9% Saline Lock 10 Ml Syringe) 10 - 40 ml IV UD PRN PRN Reason: SALINE FLUSH Last Admin: 02/20/21 13:37 Dose: 10 ml Documented by: Sodium Chloride (Sodium Chloride 0.65% 1 Ewing Ewing.Btl) 2 spray NASAL Q1H PRN PRN Reason: NASAL DRYNESS Last Admin: 02/20/21 12:04 Dose: 2 spray Documented by: Zolpidem Tartrate (Zolpidem Tartrate 5 Mg Tablet) 5 mg PO QHS PRN PRN PRN Reason: INSOMNIA Inpatient E&M: [id number] [facility]
--- NOTE | 2021-02-19 11:35 | CASEMGMT ---
Addendum entered by Shoaib Stevenson 02/19/21 11:54: Dr Pena has been consulted and has been in to see pt. Discharge is being cancelled. Call placed to Rudy @ [facility] and he was made aware. They will not deliver O2 to pt's room today. Will need new ambulatory pulse ox testing completed prior to discharge and new script for O2 if pt still qualifies for O2 @ d/c. Mei GUTIÉRREZ RN, CM Original Note: LILLIANA ARIAS NOTE: Pt qualifies for home O2 @ 3 L/M continuously. Reviewed local [employer] companies with pt and she prefers whoever is closest. Pt made aware [facility] is affiliated with [facility] and office is nearby. Pt states, well, then [facility]. Pt made aware portable O2 will be delivered to her room prior to discharge and instructed to call [facility] when she arrives home to have concentrator and other portable O2 tanks delivered. Pt voices understanding. Pt became sl tearful when discussing need for home O2, stating, I sure hope I don't need it long. I want to get back to work. She denies other discharge needs or concerns. Script for O2 obtained from Dr Grant and faxed to [facility]. Call placed to [facility] and spoke w/Rudy. He was made aware pt is discharging home today and will need O2 delivered to pt's room. Mei GUTIÉRREZ RN, CM
--- NOTE | 2021-02-19 11:41 | PCM.WORK.EX ---
Work/School Excuse Work/School Excuse for:: Patient Please excuse this person from:: Work From: 02/17/21 through: 02/26/21 - May return if oxygen stable on O2 with ambulation
--- NOTE | 2021-02-19 12:26 | PCM.CONS.PUL ---
Problem List (1) Insufficiency, respiratory, acute Status: Acute (2) GERD (gastroesophageal reflux disease) Status: Chronic (3) Fatty liver Status: Chronic (4) Hypoxemia Status: Acute Reason for Consult Date of Consultation: 02/19/21 Reason for Consultation: Hypoxia History of Present Illness: The patient is a 45 year old F, with past medical history listed below, who presented to [facility] on 02/17/2021 secondary to progressive shortness of breath over the previous 10 days. Patient had previous type of symptoms in the past that were able to be treated as an outpatient. However, given progression of symptoms, patient came to the ER to be evaluated. Patient had attempted a Z-Luis with no improvement. 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 On presentation to the ER, patient was hypertensive at 161/118, but afebrile. Initial EKG was unremarkable, but patient was noted to desaturate to 86% on room air with ambulation. Rapid Covid testing was negative, along with D-dimer. Patient was admitted to the floor for observation with a working diagnosis of asthma exacerbation on steroids and bronchodilators. Over the course of patient's hospitalization, she continued to require supplemental oxygen, so a pulmonary consult was obtained. Patient overall feels subjectively improved, but was frustrated that she was still requiring supplemental oxygen to maintain saturations. Patient did believe that her cough was improving. Patient reports that she has never been seen by academic vice president previously. Patient does have a long smoking history reporting that she started to smoke at age 11 and quit 2 weeks prior to presentation to the ER. Patient has not been on inhalers in the past. Patient does not require supplemental oxygen at baseline. Patient does report a cough productive of clear to white sputum on a daily basis, typically in the morning at baseline. Patient reports that her mother at 50 of unclear etiology. Review of systems otherwise negative from a constitutional, HEENT, respiratory, cardiovascular, GI, genitourinary, musculoskeletal, skin, neurologic, psychiatric and hematologic system unless stated above. Past Medical History Past Medical History (Chronic Problems): Chronic Problems Asthma (Chronic) GERD (gastroesophageal reflux disease) (Chronic) Fatty liver (Chronic) Allergies shellfish derived Allergy (Verified 02/17/21 12:25) Anaphylaxis Home Medications: Ambulatory Orders Medication Instructions Recorded Esomeprazole Mag Trihydrate 40 mg PO DAILY 02/17/21 [Nexium] Estradiol 0.5 mg PO DAILY 02/17/21 Meloxicam [Mobic] 15 mg PO DAILY 02/17/21 Albuterol Inhaler [Ventolin Hfa] 1 - 2 puff INHALATION Q4H PRN PRN 02/19/21 #1 inhaler Cetirizine HCl [Zyrtec] 10 mg PO DAILY #30 capsule 02/19/21 Prednisone See Taper PO DAILY #30 tablet 02/19/21 busPIRone [Buspar] 10 mg PO BID #120 tab 02/19/21 Surgical History: - - cervical spine surgery, hernia repair X2, hysterectomy. 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 Patient with significant emphysematous upper lobe changes. Patient also found to have a right lower lobe granuloma. No PE was appreciated. - Physical Exam Vitals/I&O's: Vital Signs Temp Pulse Resp BP Pulse Ox 36.6 C 79 18 124/85 H 87 02/19/21 10:00 02/19/21 10:00 02/19/21 10:00 02/19/21 10:00 02/19/21 10:32 Oxygen Flow Rate (L/min) [ 3 AMBULATING with Oxygen #1] Oxygen Flow Rate (L/min) [At 0 REST on Room Air] Oxygen Flow Rate (L/min) 3 Oxygen Delivery Method Nasal Cannula Weight: 75.4 kg Body Mass Index (BMI) 27.6 Intake and Output for Last 24 Hours 02/17/21 02/18/21 02/19/21 23:59 23:59 23:59 Intake Total 1960 / 1959 700 / 700 Output Total 400 / 400 Balance 1560 / 1560 700 / 700 General: Alert, Oriented x3, Cooperative, No apparent distress - On supplemental oxygen, - - Appears stated age. No conversational dyspnea. HEENT: Atraumatic, PERRLA, EOMI, Normocephalic, - - Action noted Oral: Moist Mucosa, No Gingival or Mucosal Lesions/ Ulcerations Neck: Supple, No JVD, No Nodes, Trachea Midline Lungs: No rhonchi, No rales, Diminished, Wheezes - End expiratory Cardiovascular: Regular rate, Regular Rhythm, Normal S1, Normal S2, No murmurs, No rub noted, No Gallop Abdomen: Bowel Sounds Present, Soft, Non Tender, Non-Distended Extremities: No clubbing, No cyanosis, No edema Skin: No rashes, No breakdown Musculoskeletal: No Tenderness to Palpation of Joints or Extremities Lymphatic: No Cervical, Supraclavicular, or Inguinal Adenopathy Neurological: Cranial nerves II-XII grossly intact, Neuro grossly intact, Motor Exam 5/5 strength throughout Psych/Mental Status: Alert and oriented to time, place, person, mood and affect Microbiology Past 72 Hours 02/17/21 15:15 Nasal Secretion SARS-CoV-2 Antigen (Rapid) - Final Current Medications Acetaminophen (Acetaminophen 325 Mg Tablet) 650 mg PO Q6H PRN PRN PRN Reason: Pain Score 1-10/Temp > 100.7 F Albuterol Sulfate (Albuterol 2.5 Mg/3 Ml Vial.Neb.) 2.5 mg INHALATION Q2H PRN PRN PRN Reason: Shortness of Breath/Wheezing Albuterol/Ipratropium (Ipratropium/Albuterol Sulfate 3 Ml Ampul.Neb) 3 ml INHALATION Q6HWA.RT [facility] Last Admin: 02/19/21 07:39 Dose: 3 ml Documented by: Benzonatate (Benzonatate 100 Mg Capsule) 100 mg PO TID PRN PRN PRN Reason: COUGH Last Admin: 02/19/21 07:09 Dose: 100 mg Documented by: Estradiol (Estradiol 0.5 Mg Tablet) 0.5 mg PO DAILY [facility] Last Admin: 02/19/21 10:22 Dose: 0.5 mg Documented by: Guaifenesin (Guaifenesin 1,200 Mg Tablet) 1,200 mg PO BID [facility] Last Admin: 02/19/21 10:22 Dose: 1,200 mg Documented by: Hydralazine HCl (Hydralazine 20 Mg/Ml Vial) 10 mg IV Q4H PRN PRN PRN Reason: BLOOD PRESSURE Loratadine (Loratadine 10 Mg Tablet) 10 mg PO DAILY [facility] Last Admin: 02/19/21 10:22 Dose: 10 mg Documented by: Methylprednisolone (Methylprednisolone 40 Mg/Ml Vial) 40 mg IV Q8 [facility] Last Admin: 02/19/21 06:20 Dose: 40 mg Documented by: Ondansetron HCl (Ondansetron 4 Mg/2 Ml Vial) 4 mg IV Q8H PRN PRN PRN Reason: NAUSEA/VOMITING Pantoprazole Sodium (Pantoprazole Sodium 40 Mg Tablet) 40 mg PO DAILY [facility] Last Admin: 02/19/21 10:23 Dose: 40 mg Documented by: Sodium Chloride (0.9% Saline Lock 10 Ml Syringe) 10 - 40 ml IV UD PRN PRN Reason: SALINE FLUSH Last Admin: 02/19/21 06:20 Dose: 10 ml Documented by: Zolpidem Tartrate (Zolpidem Tartrate 5 Mg Tablet) 5 mg PO QHS PRN PRN PRN Reason: INSOMNIA Clinical Impression(s) from Imaging Studies Chest CTA 02/19/21 08:13 IMPRESSION: Hyperinflation and emphysematous changes worse in the upper lobes with bullous changes more prominent in the right upper lobe. No evidence of pulmonary embolism. Electronically Signed: Luis Gomez MD at 9:05 EDT , Service support , Assessment/Plan All Active Problems Acute bronchitis with bronchospasm (Acute) Insufficiency, respiratory, acute (Acute) Hypoxemia (Acute) Asthma exacerbation (Acute) RECOMMENDATIONS: 1. Walking oximetry prior to discharge 2. Discharge on 12-day taper of prednisone 3. Combivent likely reasonable until further testing can be completed 4. Outpatient complete PFT, walking oximetry and alpha-1 antitrypsin testing 5. Work release until patient is able to be seen by nurse practitioner in 2 weeks in our office IMPRESSIONS: 1. Acute hypoxic respiratory insufficiency secondary to COPD exacerbation Patient carries a diagnosis of asthma, but has significant emphysematous changes noted on CT scan of the chest. Unclear if current presentation is suggestive of both a COPD and asthma overlap syndrome or COPD individually. Patient likely needs to be evaluated for alpha-1 antitrypsin deficiency given her young age, but patient did start smoking at age 11, so changes could be appropriate. Patient currently requiring supplemental oxygen, so if she is to be discharged she will likely require this on discharge. Patient can be reevaluated as an outpatient for alpha-1 antitrypsin, walking oximetry and complete PFT for quantification clarification of lung function. A 12-day prednisone taper is likely appropriate. Patient could be given Combivent, but would hold on any maintenance medications until further information is available following PFT. 2. Hypertension/tobacco dependence/GERD Complicates care, management, recovery and prognosis. Unclear if an element of hypertension secondary to anxiety associated with hospitalization versus side effect of steroids. Recommend evaluating as an outpatient. Long discussion with the patient about the necessity of smoking cessation to avoid future complications. Inpatient E&M: 00414 Init Hosp L2
--- NOTE | 2021-02-19 12:33 | PN_ITS ---
<Florentin Marinossica ADVANCE SCOUT - Last Filed: 02/19/21 12:38> Patient Problems: Active and Suspected Problems Acute bronchitis with bronchospasm (Acute) Insufficiency, respiratory, acute (Acute) Hypoxemia (Acute) Asthma exacerbation (Acute) Subjective: Patient seen and examined. Tearful during exam, states she does not want to be sick. Patient also states she recently got a work promotion and is worried she will lose this promotion related to requiring oxygen and being off of work. Discussed CT results which demonstrated COPD/emphysema. Patient reports increased anxiety recently, amendable to initiating medication regimen. - Physical Exam Vitals/I&O's: Vital Signs Temp Pulse Resp BP Pulse Ox 97.8 F 79 18 124/85 H 87 02/19/21 10:00 02/19/21 10:00 02/19/21 10:00 02/19/21 10:00 02/19/21 10:32 Oxygen Flow Rate (L/min) [ 3 AMBULATING with Oxygen #1] Oxygen Flow Rate (L/min) [At 0 REST on Room Air] Oxygen Flow Rate (L/min) 3 Oxygen Delivery Method Nasal Cannula Weight: 166 lb 3.657 oz Body Mass Index (BMI) 27.6 Intake and Output for Last 24 Hours 02/17/21 02/18/21 02/19/21 23:59 23:59 23:59 Intake Total 1960 / 1960 700 / 700 Output Total 400 / 400 Balance 1560 / 1560 700 / 700 General: Alert, Oriented x3, Cooperative HEENT: Atraumatic, PERRLA, EOMI, Normocephalic Neck: Supple, No JVD, Negative Carotid Bruits Lungs: Diminished, Wheezes Cardiovascular: Regular rate, No murmurs, - - Tachycardic with ambulation Abdomen: Bowel Sounds Present, Soft, Non Tender Extremities: No clubbing, No cyanosis, No edema, Capillary Refill Less than 3 Seconds Skin: No rashes, No breakdown Musculoskeletal: No Tenderness to Palpation of Joints or Extremities Neurological: Cranial nerves II-XII grossly intact, Neuro grossly intact Psych/Mental Status: Anxious Microbiology Past 72 Hours 02/17/21 15:15 Nasal Secretion SARS-CoV-2 Antigen (Rapid) - Final Current Medications Acetaminophen (Acetaminophen 325 Mg Tablet) 650 mg PO Q6H PRN PRN PRN Reason: Pain Score 1-10/Temp > 100.7 F Albuterol Sulfate (Albuterol 2.5 Mg/3 Ml Vial.Neb.) 2.5 mg INHALATION Q2H PRN PRN PRN Reason: Shortness of Breath/Wheezing Albuterol/Ipratropium (Ipratropium/Albuterol Sulfate 3 Ml Ampul.Neb) 3 ml INHALATION Q6HWA.RT [facility] Last Admin: 02/19/21 07:39 Dose: 3 ml Documented by: Benzonatate (Benzonatate 100 Mg Capsule) 100 mg PO TID PRN PRN PRN Reason: COUGH Last Admin: 02/19/21 07:09 Dose: 100 mg Documented by: Estradiol (Estradiol 0.5 Mg Tablet) 0.5 mg PO DAILY [facility] Last Admin: 02/19/21 10:22 Dose: 0.5 mg Documented by: Guaifenesin (Guaifenesin 1,200 Mg Tablet) 1,200 mg PO BID [facility] Last Admin: 02/19/21 10:22 Dose: 1,200 mg Documented by: Hydralazine HCl (Hydralazine 20 Mg/Ml Vial) 10 mg IV Q4H PRN PRN PRN Reason: BLOOD PRESSURE Loratadine (Loratadine 10 Mg Tablet) 10 mg PO DAILY [facility] Last Admin: 02/19/21 10:22 Dose: 10 mg Documented by: Methylprednisolone (Methylprednisolone 40 Mg/Ml Vial) 40 mg IV Q8 [facility] Last Admin: 02/19/21 06:20 Dose: 40 mg Documented by: Ondansetron HCl (Ondansetron 4 Mg/2 Ml Vial) 4 mg IV Q8H PRN PRN PRN Reason: NAUSEA/VOMITING Pantoprazole Sodium (Pantoprazole Sodium 40 Mg Tablet) 40 mg PO DAILY [facility] Last Admin: 02/19/21 10:23 Dose: 40 mg Documented by: Sodium Chloride (0.9% Saline Lock 10 Ml Syringe) 10 - 40 ml IV UD PRN PRN Reason: SALINE FLUSH Last Admin: 02/19/21 06:20 Dose: 10 ml Documented by: Zolpidem Tartrate (Zolpidem Tartrate 5 Mg Tablet) 5 mg PO QHS PRN PRN PRN Reason: INSOMNIA Medical Necessity - Tobacco Use Smoking Status: Former smoker Tobacco Use: Cigarettes Assessment/Plan All Active Problems Acute bronchitis with bronchospasm (Acute) Insufficiency, respiratory, acute (Acute) Hypoxemia (Acute) Asthma exacerbation (Acute) 1. Acute hypoxic respiratory insufficiency secondary to acute exacerbation of COPD-Covid negative. Checks x-ray without infiltrate or acute process. Albuterol DuoNeb aerosols. IV Solu-Medrol. CTA demonstrates hyperinflation and emphysematous changes, no PE or other acute process. Pulmonary medicine consulted. Remains on 3 L supplemental oxygen. We will continue IV steroids through today, encourage incentive spirometer. Repeat home oxygen testing in a.m. Anticipate discharge home tomorrow with outpatient follow-up with pulmonary medicine. 2. Elevated blood pressure without history of hypertension-Suspect secondary to acute process. Resolved without intervention. 3. Tobacco dependence-quit 2 weeks ago. Encouraged continued cessation. 4. GERD-continue PPI. 5. Anxiety-patient reports social stressors and states that she goes back to smoking during times of increased stress. Initiated on BuSpar 10 mg twice daily which can be titrated as outpatient. DVT prophylaxis-ambulatory, low risk This patient was seen by JESSICA Olivas under the supervision of Dr. Grant. <Shirley Grant - Last Filed: 02/19/21 13:02> - Physical Exam Vitals/I&O's: Vital Signs Temp Pulse Resp BP Pulse Ox 97.8 F 79 18 124/85 H 87 02/19/21 10:00 02/19/21 10:00 02/19/21 10:00 02/19/21 10:00 02/19/21 10:32 Oxygen Flow Rate (L/min) [ 3 AMBULATING with Oxygen #1] Oxygen Flow Rate (L/min) [At 0 REST on Room Air] Oxygen Flow Rate (L/min) 3 Oxygen Delivery Method Nasal Cannula Weight: 75.4 kg Body Mass Index (BMI) 27.6 Intake and Output for Last 24 Hours 02/17/21 02/18/21 02/19/21 23:59 23:59 23:59 Intake Total 1960 / 1960 700 / 700 Output Total 400 / 400 Balance 1560 / 1560 700 / 700 Microbiology Past 72 Hours 02/17/21 15:15 Nasal Secretion SARS-CoV-2 Antigen (Rapid) - Final Current Medications Acetaminophen (Acetaminophen 325 Mg Tablet) 650 mg PO Q6H PRN PRN PRN Reason: Pain Score 1-10/Temp > 100.7 F Albuterol Sulfate (Albuterol 2.5 Mg/3 Ml Vial.Neb.) 2.5 mg INHALATION Q2H PRN PRN PRN Reason: Shortness of Breath/Wheezing Albuterol/Ipratropium (Ipratropium/Albuterol Sulfate 3 Ml Ampul.Neb) 3 ml INHALATION Q6HWA.RT [facility] Last Admin: 02/19/21 07:39 Dose: 3 ml Documented by: Benzonatate (Benzonatate 100 Mg Capsule) 100 mg PO TID PRN PRN PRN Reason: COUGH Last Admin: 02/19/21 07:09 Dose: 100 mg Documented by: Buspirone HCl (Buspirone 5 Mg Tablet) 10 mg PO BID [facility] Estradiol (Estradiol 0.5 Mg Tablet) 0.5 mg PO DAILY [facility] Last Admin: 02/19/21 10:22 Dose: 0.5 mg Documented by: Guaifenesin (Guaifenesin 1,200 Mg Tablet) 1,200 mg PO BID [facility] Last Admin: 02/19/21 10:22 Dose: 1,200 mg Documented by: Hydralazine HCl (Hydralazine 20 Mg/Ml Vial) 10 mg IV Q4H PRN PRN PRN Reason: BLOOD PRESSURE Loratadine (Loratadine 10 Mg Tablet) 10 mg PO DAILY [facility] Last Admin: 02/19/21 10:22 Dose: 10 mg Documented by: Methylprednisolone (Methylprednisolone 40 Mg/Ml Vial) 40 mg IV Q8 [facility] Last Admin: 02/19/21 06:20 Dose: 40 mg Documented by: Ondansetron HCl (Ondansetron 4 Mg/2 Ml Vial) 4 mg IV Q8H PRN PRN PRN Reason: NAUSEA/VOMITING Pantoprazole Sodium (Pantoprazole Sodium 40 Mg Tablet) 40 mg PO DAILY [facility] Last Admin: 02/19/21 10:23 Dose: 40 mg Documented by: Sodium Chloride (0.9% Saline Lock 10 Ml Syringe) 10 - 40 ml IV UD PRN PRN Reason: SALINE FLUSH Last Admin: 02/19/21 06:20 Dose: 10 ml Documented by: Zolpidem Tartrate (Zolpidem Tartrate 5 Mg Tablet) 5 mg PO QHS PRN PRN PRN Reason: INSOMNIA Assessment/Plan his patient was seen in conjunction with Jayna Marino NP. I have independently interviewed and examined the patient and reviewed pertinent historical, laboratory, and other data. Please refer to her note for patient's presentation, findings, and recommendations. Patient was seen and examined. She is currently on 3 L of oxygen. Feels much improved. Denies any wheezes CTA of the chest shows no acute PE. It shows evidence of emphysematous changes worse in the upper lobes with bullous changes in the right upper lobe. Vitals were reviewed -stable Physical Exam: Gen: Comfortable, not pale, not jaundiced, alert oriented x3, on 3L oxygen CVS:HS I +II, regular, no murmurs RESP: Diminished at lung bases GI: BS present and normal, nontender, no palpable organs EXT:No edema Labs reviewed: ASSESSMENT: 1. Acute COPD exacerbation 2. Acute hypoxic respiratory insufficiency secondary to #1 3. Elevated blood pressure without hypertension 4. Nicotine dependence 5. GERD 6. Hypokalemia Meds reviewed Plan: Wean off for SPO2 more than 92?94 Continue on breathing treatments, IV Solu-Medrol Possible discharge in a.m. on oxygen Inpatient E&M: 64116 Subs Hosp L2
[2021-02-19] MEDS: busPIRone 5 MG Tablet 10 MG PO ×2 (13:58→22:27)
--- NOTE | 2021-02-19 14:25 | CASEMGMT ---
RN CM HR CLERK CM to room to meet with patient for initial transition planning/care coordination assessment. LILLIANA ARIAS introduced self and role at [facility]. Pt voices understanding and consents to assessment at this time. Pt resting in bed in no distress at this time. Pt is A/O at this time and answers all questions appropriately. Care providers, pharmacy, and demographics verified/updated at this time. PCP: Kathy Barker Pt states she wishes to switch to a different PCP. ESTELA Dorantes, has given pt a list of local PCP's. Preferred Pharmacy: [facility] retail Insurance: [employer] Prescription Benefit: Yes Living Will/HPOA: States does not have LW or HCPOA . Interested in more information and would like to talk with SW to complete paperwork. Provided information on advanced directives. Made aware, if SW unable to meet with her prior to d/c, that she can call SW if chooses in the future to utilize [facility] social work for advanced directive completion as an out-pt. Pt given Social Service rac card with contact number. SW, Beryl Prieto, notified pt would like to complete AD. LNOK: , Federico. 4 adult children Living Arrangements: Lives w/her in one-story home w/basement. 2 steps to enter. States able to navigate the stairs well with the exception of having SOB while going up them. Independent w/ADL's. Manages home mgmt tasks. Transportation: Pt states drives self and states no transportation concerns at this time. also drives. DME: Has a nebulizer. If O2 is needed @ discharge, [employer] for DME co, as previously charted. HHC/SNF:No history of either. Denies needs for HHC and no needs identified. Pt wishes to return home and states has no concerns with going home at time of discharge. CM to follow for home oxygen needs and any further discharge planning/needs. Pt voices no further concerns/needs at this time. Advised pt to ask for CM if any further questions/concerns/needs arise. Voices understanding. PLAN: Home Follow for O2 needs @ discharge. Mei GUTIÉRREZ RN, CM
--- NOTE | 2021-02-19 15:19 | CASEMGMT ---
Social Work Note SW received referral for Advanced Directives. SW in to speak with pt. SW introduced self and role at [facility]. Pt is alert and orientated. SW initiated conversation regarding Advanced Directives. Pt states she would like to review documents tonight. SW informed pt that this worker can try and stop in see pt tomorrow pending time availability to complete documents or pt can complete documents at home. Pt states understanding. SW to follow up with pt tomorrow as time allows for Advanced Directives. Beryl Prieto STEAM PLANT OPERATOR, ONCOLOGY RN
[2021-02-20] VITALS (14 sets, daily range): BP systolic 111–129; BP diastolic 75–91; PULSE 75–109; RESP 16–20; TEMP 36.2–37; O2SAT 83–95
[2021-02-20] MEDS: 0.9% Saline Lock 10 ML Syringe IV ×2 (05:53→13:37)
[2021-02-20] MEDS: Acetaminophen 325 MG Tablet 650 MG PO (05:55)
[2021-02-20] MEDS: Benzonatate 100 MG Capsule PO (05:56)
[2021-02-20] MEDS: Ipratropium/Albuterol Sulfate 3 ML AMPUL.NEB INHALATION ×2 (06:52→13:09)
[2021-02-20] MEDS: Pantoprazole Sodium 40 MG Tablet PO (09:44)
[2021-02-20] MEDS: busPIRone 5 MG Tablet 10 MG PO (09:44)
[2021-02-20] MEDS: Estradiol 0.5 MG Tablet PO (09:44)
[2021-02-20] MEDS: Loratadine 10 MG Tablet PO (09:44)
[2021-02-20] MEDS: guaiFENesin 1,200 MG Tablet 1200 MG PO (09:44)
[2021-02-20] MEDS: Sodium Chloride 0.65% 1 SPRAY SPRAY.BTL 2 SPRAY NASAL (12:04)
--- NOTE | 2021-02-20 12:28 | CASEMGMT ---
Social Work Note Pt is discharging today. SW in to speak with pt regarding advanced directives. Pt denied wanting to complete documents while at [facility], states she would like to take documents home to review. SW reiterated to pt that she may call Social Service Department to set up appointment to complete as outpatient if she wishes. Pt states understanding, pt has Social Service Rac Card. Beryl Prieto CYANIDE POT HARDENER, [employer] GENER[employer]
--- NOTE | 2021-02-20 14:07 | CASEMGMT ---
Pt qualifies for home O2 at 3L NC cont. Referral faxed to [facility] and call placed to Jeanine Chavez to notify of referral and DC today. Pt is aware that O2 will come to room. She denies further needs.
--- NOTE | 2021-02-20 15:26 | PHA.DC.MC ---
Pharmacy Service has performed discharge medication reconciliation and counseling for this patient. 1. ALBUTEROL INHALER 1-2 PUFFS PO Q4H PRN SOB 2. PREDNISONE 40MG PO DAILY X 3 DAYS, THEN 30MG X 3 DAYS, THEN 20MG X 3 DAYS, THEN 10MG X 3 DAYS 3. CETIRIZINE 10MG PO DAILY 4. BUSPIRONE 10MG PO BID The patient's discharge medication list was reviewed for discrepancies and discrepancies were resolved. Home Medications Esomeprazole Mag Trihydrate [Nexium] 40 mg PO DAILY 02/17/21 Estradiol 0.5 mg PO DAILY 02/17/21 Meloxicam [Mobic] 15 mg PO DAILY 02/17/21 Albuterol Inhaler [Ventolin Hfa] 1 - 2 puff INHALATION Q4H PRN PRN #1 inhaler 02/19/21 Cetirizine HCl [Zyrtec] 10 mg PO DAILY #30 capsule 02/19/21 Prednisone See Taper PO DAILY #30 tablet 02/19/21 busPIRone [Buspar] 10 mg PO BID #120 tab 02/19/21 The patient was counseled on the following discharge medications and changes in medications for homegoing were reviewed. The Reason for Use, instructions for use, and potential side effects were reviewed for all new medications. The patient's questions regarding all of their medications were answered. The patient was able to verbally demonstrate an understanding of their discharge medications.
--- NOTE | 2021-02-20 15:37 | PN_ITS ---
Patient Problems: Active and Suspected Problems Acute bronchitis with bronchospasm (Acute) Insufficiency, respiratory, acute (Acute) Hypoxemia (Acute) Asthma exacerbation (Acute) Subjective: Patient did well overnight. Patient feels subjectively improved compared to previous. Patient is not reporting any chest pain and feels that her coughing is improving. - Physical Exam Vitals/I&O's: Vital Signs Temp Pulse Resp BP Pulse Ox 37.0 C 106 H 18 124/83 H 93 02/20/21 15:01 02/20/21 15:01 02/20/21 15:01 02/20/21 15:01 02/20/21 15:01 Oxygen Flow Rate (L/min) [ 0 AMBULATING on Room Air] Oxygen Flow Rate (L/min) [ 3 AMBULATING with Oxygen #2] Oxygen Flow Rate (L/min) [At 2 REST with Oxygen] Oxygen Flow Rate (L/min) [ 4 AMBULATING with Oxygen #1] Oxygen Flow Rate (L/min) [At 0 REST on Room Air] Oxygen Flow Rate (L/min) 3 Oxygen Delivery Method Nasal Cannula Weight: 75.4 kg Body Mass Index (BMI) 27.6 Intake and Output for Last 24 Hours 02/18/21 02/19/21 02/20/21 23:59 23:59 23:59 Intake Total 1960 / 1960 1500 / 1500 2900 / 2900 Output Total 400 / 400 Balance 1560 / 1560 1500 / 1500 2900 / 2900 General: Alert, Oriented x3, Cooperative, No apparent distress, - - No convers ational dyspnea HEENT: Atraumatic, PERRLA, EOMI, Normocephalic, - - No scleral icterus or injection noted. Nasal cannula in place. Oral: Moist Mucosa, No Gingival or Mucosal Lesions/ Ulcerations Neck: Supple, No JVD, No Nodes, Trachea Midline Lungs: No rhonchi, No wheeze, No rales, Diminished Cardiovascular: Regular rate, Regular Rhythm, Normal S1, Normal S2, No murmurs, No rub noted, No Gallop Abdomen: Bowel Sounds Present, Soft, Non Tender, Non-Distended Extremities: No clubbing, No cyanosis, No edema Skin: No rashes, No breakdown Musculoskeletal: No Tenderness to Palpation of Joints or Extremities Lymphatic: No Cervical, Supraclavicular, or Inguinal Adenopathy Neurological: Cranial nerves II-XII grossly intact, Neuro grossly intact, Motor Exam 5/5 strength throughout Psych/Mental Status: Alert and oriented to time, place, person, mood and affect Microbiology Past 72 Hours 02/17/21 15:15 Nasal Secretion SARS-CoV-2 Antigen (Rapid) - Final Current Medications Acetaminophen (Acetaminophen 325 Mg Tablet) 650 mg PO Q6H PRN PRN PRN Reason: Pain Score 1-10/Temp > 100.7 F Last Admin: 02/20/21 05:55 Dose: 650 mg Documented by: Albuterol Sulfate (Albuterol 2.5 Mg/3 Ml Vial.Neb.) 2.5 mg INHALATION Q2H PRN PRN PRN Reason: Shortness of Breath/Wheezing Albuterol/Ipratropium (Ipratropium/Albuterol Sulfate 3 Ml Ampul.Neb) 3 ml INHALATION Q6HWA.RT [facility] Last Admin: 02/20/21 13:09 Dose: 3 ml Documented by: Benzonatate (Benzonatate 100 Mg Capsule) 100 mg PO TID PRN PRN PRN Reason: COUGH Last Admin: 02/20/21 05:56 Dose: 100 mg Documented by: Buspirone HCl (Buspirone 5 Mg Tablet) 10 mg PO BID [facility] Last Admin: 02/20/21 09:44 Dose: 10 mg Documented by: Estradiol (Estradiol 0.5 Mg Tablet) 0.5 mg PO DAILY [facility] Last Admin: 02/20/21 09:44 Dose: 0.5 mg Documented by: Guaifenesin (Guaifenesin 1,200 Mg Tablet) 1,200 mg PO BID [facility] Last Admin: 02/20/21 09:44 Dose: 1,200 mg Documented by: Hydralazine HCl (Hydralazine 20 Mg/Ml Vial) 10 mg IV Q4H PRN PRN PRN Reason: BLOOD PRESSURE Loratadine (Loratadine 10 Mg Tablet) 10 mg PO DAILY [facility] Last Admin: 02/20/21 09:44 Dose: 10 mg Documented by: Methylprednisolone (Methylprednisolone 40 Mg/Ml Vial) 40 mg IV Q8 [facility] Last Admin: 02/20/21 13:36 Dose: 40 mg Documented by: Ondansetron HCl (Ondansetron 4 Mg/2 Ml Vial) 4 mg IV Q8H PRN PRN PRN Reason: NAUSEA/VOMITING Pantoprazole Sodium (Pantoprazole Sodium 40 Mg Tablet) 40 mg PO DAILY [facility] Last Admin: 02/20/21 09:44 Dose: 40 mg Documented by: Sodium Chloride (0.9% Saline Lock 10 Ml Syringe) 10 - 40 ml IV UD PRN PRN Reason: SALINE FLUSH Last Admin: 02/20/21 13:37 Dose: 10 ml Documented by: Sodium Chloride (Sodium Chloride 0.65% 1 Wayne Wayne.Btl) 2 spray NASAL Q1H PRN PRN Reason: NASAL DRYNESS Last Admin: 02/20/21 12:04 Dose: 2 spray Documented by: Zolpidem Tartrate (Zolpidem Tartrate 5 Mg Tablet) 5 mg PO QHS PRN PRN PRN Reason: INSOMNIA Medical Necessity - Tobacco Use Smoking Status: Former smoker Tobacco Use: Cigarettes Assessment/Plan All Active Problems Acute bronchitis with bronchospasm (Acute) Insufficiency, respiratory, acute (Acute) Hypoxemia (Acute) Asthma exacerbation (Acute) RECOMMENDATIONS: 1. Walking oximetry prior to discharge 2. Discharge on 12-day taper of prednisone 3. Combivent likely reasonable until further testing can be completed 4. Outpatient complete PFT, walking oximetry and alpha-1 antitrypsin testing 5. Work release until patient is able to be seen by nurse practitioner in 2 weeks in our office 6. Okay to discharge from a pulmonary perspective IMPRESSIONS: 1. Acute hypoxic respiratory insufficiency secondary to COPD exacerbation Patient carries a diagnosis of asthma, but has significant emphysematous changes noted on CT scan of the chest. Unclear if current presentation is suggestive of both a COPD and asthma overlap syndrome or COPD individually. Patient likely needs to be evaluated for alpha-1 antitrypsin deficiency given her young age, but patient did start smoking at age 11, so changes could be appropriate. Patient currently requiring supplemental oxygen, so if she is to be discharged she will likely require this on discharge. Patient can be reevaluated as an outpatient for alpha-1 antitrypsin, walking oximetry and complete PFT for quantification clarification of lung function. A 12-day prednisone taper is likely appropriate. Patient could be given Combivent, but would hold on any maintenance medications until further information is available following PFT. Long discussion with the patient about appropriate use of pulse oximeter to monitor oxygen need and the need for complete tobacco cessation, especially when oxygen is in place. 2. Hypertension/tobacco dependence/GERD Complicates care, management, recovery and prognosis. Unclear if an element of hypertension secondary to anxiety associated with hospitalization versus side effect of steroids. Recommend evaluating as an outpatient. Long discussion with the patient about the necessity of smoking cessation to avoid future complications. Inpatient E&M: 85910 Subs Hosp L2
== END 2021-02-20 16:25 | disposition home or self-care (01) | DRG 192 ==
LOC: ED 17:09 → MS3 17:31
PROVIDERS: Nurse Practitioner Family; Admitting Provider Hospitalist; Emergency Provider Emergency Medicine; Visit Provider Internal Medicine
DX: J44.1 Chronic obstructive pulmonary disease with (acute) exacerbation (principal); J44.0 Chronic obstructive pulmonary disease with (acute) lower respiratory infection; J20.9 Acute bronchitis, unspecified; R09.02 Hypoxemia; R06.89 Other abnormalities of breathing; Z20.822 Contact with and (suspected) exposure to COVID-19; I16.0 Hypertensive urgency; E87.6 Hypokalemia; R03.0 Elevated blood-pressure reading, without diagnosis of hypertension; K21.9 Gastro-esophageal reflux disease without esophagitis; F41.9 Anxiety disorder, unspecified; Z79.899 Other long term (current) drug therapy; Z79.1 Long term (current) use of non-steroidal anti-inflammatories (NSAID); Z87.891 Personal history of nicotine dependence
CPT/HCPCS: 36415; 71046; 71275; 80048; 84484; 85025; 85379; 87426; 87635; 93005; 94640; 94760; 99251; 99284; 99406; J7030; Q9967; A4216; G0463; U0002

== ENCOUNTER 2023-12-10 11:00 | Outpatient (RCR) | payer BC, SELFPAY ==
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
--- NOTE | 2023-11-19 11:57 | HP.PTREVAL_ITS ---
Re-Evaluation Intro: Dr. Kathy Barker MD, It has been my pleasure to treat PAULINA SALEH over the last 10 visits for ACUTE R LBP W R SCIATICA AND CERVICAL STENOSIS WITH MYELOPATHY. Please see the progress note below for an update on the physical therapy plan of care! Subjective Subjective: I FEEL PRETTY GOOD TODAY. I AM FEELING STRONGER. THE CORE THINGS I AM LEARNING ARE REALLY HELPING ME WITH THINGS LIKE DOING DISHES. PATIENT REPORTS REPORTS SHE HAS A LITTLE MORE BETTER DAYS THAN BAD DAYS NOW SINCE STARTING PT - A LITTLE LESS PAIN. 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 PATIENT STATES SHE ABSOLUTELY WANTS TO CONTINUE AQUATIC THERAPY. ITS STILL ROUGH SLEEPING BUT I THINK ITS GETTING A LITTLE BETTER. I STILL CAN NOT LAY ON MY R SIDE. PATIENT REPORTS GETTING L FOOT INJECTION 10/30/23 AND HER PLANTAR FASCITIS IS GONE - WEARING SHOE INSERTS NOW TOO. PATIENT REPORTS SHE HAS HAD NECK SURGERY AND SHE IS ABSOLUTELY NOT GOING TO HAVE BACK SURGERY. SHE REPORTS SHE WANTS TO MAKE HERSELF STRONGER AND LEARN HOW TO DO THAT AND THAT IS WHY SHE IS HERE. PATIENT REPORTS GETTING OUT OF THE CAR IS EASIER AND SHE DOESN'T HAVE TO STAND THERE LONG BEFORE SHE CAN START WALKING AFTER GETTING OUT OF THE CAR. Objective Objective/Function: PATIENT WAS SEEN TODAY FOR RE-ASSESSMENT OF PROGRESS TOWARD THE SET PT GOALS AND THE NEED FOR FURTHER PHYSICAL THERAPY VS READINESS FOR DISCHARGE. PATIENT IS A GOOD CANDIDATE TO CONTINUE PT BASED ON IMPROVEMENT MADE AND ROOM FOR FURTHER IMPROVEMENT. UPON EXAM TODAY: ROM deficit: PAINFUL R HIP IR WITH APPROX 10% DECREASED ROM COMPARED TO L. TIGHT TAYLOR HIP FLEXORS, HS AND GASTROC-SOLEUS COMPLEX'S. Motor deficit: R HIP 4-/5, KNEE EXT 4+/5, KNEE FLEX 4+/5, ANKLE DORSI 5/5, PLANTAR FLEX 4/5. L HIP 3+/5, KNEE EXT 4-/5, KNEE FLEX 4/5, ANKLE DORSI 4+/5, PLANTAR FLEX 4/5 Dural Signs: NEGATIVE TAYLOR LE'S. Lumbar mvmt loss: flex - MIN ext - MOD R SG - MOD L SG - TAMEKA PATIENT C/O INCREASE LOW BACK PAIN WITH LUMBAR ROM TESTING INTO EXT AND L SG TODAY. DENIES PAIN WITH FLEXION GOING SLOW AND NO INCREASED PAIN WITH R SG TESTING. Core strength: FAIR Palpation: TENDERNESS WITH PALPATION OF L5S1 AND ALSO VERY TENDER R GREATER TROCH REGION BUT PATIENT REPORTS IT IS BETTTER. INCREASED M. TONE OF LUMBAR PARASPINALS THROUGHOUT. 30 SEC STS TEST: 7 - HANDS ON KNEES Plan Plan Plan: CONTINUE 2-3 TIMES A WK (PATIENT IS CONSIDERING MEMBERSHIP TO START TRANSITION TO [facility] APPROPRIATE) X 4-6 WKS FOR: AQUATIC THERAPY FOR PAIN RELIEF, POSTURE CORRECTION/STRENGTHENING, INSTRUCTION IN APPROPRIATE BODY MECHANICS AND ACTIVITY MODIFICATIONS. DLS STARTING WITH A NEUTRAL SPINE AND PROGRESSING ROM TOLERATED. TAYLOR LE ROM, STRETCHING AND STRENGTHENING. HEP INSTRUCTION. Balance/Gait/Functional tests Balance/Special Test Scores Oswestry Low Back Score: 20 Goals Goals Goal 1:: DECREASE C/O LOW BACK AND LE SX'S BY AT LEAST 25% TO EASE ADL'S Goal Time Frame: 4-6 Weeks Goal Progress: Goal Met Goal 2:: IMPROVE PERSONAL CARE, LIFTING, WALKING, SITTING, STANDING, SLEEP, SOCIAL LIFE, TRAVEL AND WORK/HOMEMAKING FUNCTION EVIDENCED BY AT LEAST 5 POINT BACK OSWESTRY SCORE IMPROVEMENT. Goal Time Frame: 4-6 Weeks Goal Progress: Progressing Goal 3:: PATIENT WILL BE INDEP WITH A HEP FOR CONTINUED IMPROVEMENT ONCE FORMAL PHYSICAL THEAPAPY CONCLUDES. Goal Time Frame: 4-6 Weeks Goal Progress: Progressing Anticipated Interventions Anticipated Interventions Patient/Client Instruction: Educate patient on: Condition, Plan of Care and Risk Factors For the Purpose of:: To improve self management Therapeutic Exercise to Include: Strength training, Body mechanics, Postural training, Flexibilty training, Neuromotor development, In an aquatic setting and Dynamic Lumbar Stabilization For the Purpose of:: To decrease pain, To increase ROM, To improve muscle performance and motor function, To increase tolerance to activity/condition/position and To improve ability of physical actions for home/community/work/leisure Re-Evaluation Ending Re-evaluation ending: Please do not hesitate to contact me at [phone] by phone or if you have questions or concerns regarding this new plan of care! Sincerely, Jaclyn Murdock, PT, Cert MDT
--- NOTE | 2023-12-13 12:42 | HP.PTREVAL_ITS ---
Re-Evaluation Intro: Dr. Kathy Barker MD, It has been my pleasure to treat PAULINA SALEH over the last 20 visits for ACUTE R LBP W R SCIATICA AND CERVICAL STENOSIS WITH MYELOPATHY. Please see the progress note below for an update on the physical therapy plan of care! Subjective Subjective: PATIENT REPORTS SHE HAS IMPROVED A LOT. SHE REPORTS SHE IS SITTING AND STANDING BETTER. SHE REPORTS SHE HAS LEARNED A LOT AND WHEN SHE APPLIES IT SHE FEELS BETTER. SHE REPORTS COMPLIANCE WITH HER HEP AND IT REALLY HELPS. SHE REPORTS HER R HIP STILL HURTS BUT IT IS GETTING LESS. SHE REPORTS SHE UNDERSTANDS SO MUCH BETTER NOW WHY SHE HURTS AND WHAT SHE CAN DO TO GET RELIEF AND SHE IS SO THANKFUL FOR THAT. SHE STATES SHE IS GRATEFUL TO HAVE EX'S THAT SHE CAN DO AT HER HOUSE AND AT WORK DURING DOWN TIME INSTEAD OF GOING TO A GYM. SHE ALSO REPORTS STARTING FLEXERIL ABOUT A WEEK AGO AND SINCE THEN SHE IS ABLE TO EXERCISE EVEN BETTER AND SLEEP BETTER. HAD MRI LAST WEEK IN [place] SHOWING PROGRESSION OF HER SAME CONDITION PER PATIENT REPORT. PATIENT REPORTS SHE HAS KNOWLEDGE AND TOOLS TO USE TO HELP HERSELF NOW AND SHE IS READY TO CONTINUE ON HER OWN BEFORE GOING BACK TO WORK NEXT MONTH. I FEEL SO MUCH BETTER THAN THE DAY I WALKED IN HERE. I FELT BROKEN THE DAY I WALKED IN HERE. Objective Objective/Function: PATIENT WAS SEEN TODAY FOR RE-ASSESSMENT OF PROGRESS TOWARD THE SET PT GOALS AND THE NEED FOR FURTHER PHYSICAL THERAPY VS READINESS FOR DISCHARGE. SHE HAS RESPONDED REALLY WELL TO THERAPY AND IS INDEP WITH A HEP. SHE WOULD LIKE TO CONTINUE ON HER OWN NOW AND STATES THAT HER PAIN IS MANAGEABLE NOW. ALL PT GOALS HAVE BEEN MET AND SHE IS APPROPRIATE FOR DISCHARGE. UPON EXAM TODAY: ROM deficit: MILD LE HIP FLEXOR, HS AND CALF TIGHTNESS. TAYLOR HIP ROTATION ROM IS SYMMETRICAL NOW. Motor deficit: R HIP 4/5, KNEE 5/5, ANKLE 5/5. L HIP 4/5, KNEE 5/5, ANKLE 5/5. Dural Signs: NEGATIVE TAYLOR LE'S. Lumbar mvmt loss: flex - NIL ext - MOD R SG - MIN L SG - MOD PATIENT C/O INCREASE LOW BACK PAIN WITH LUMBAR ROM TESTING INTO EXT AND L SG. DENIES PAIN WITH FLEXION GOING SLOW AND NO INCREASED PAIN WITH R SG TESTING. Core strength: GOOD Palpation: ONLY MILD LOWER LUMBAR AND R HIP TENDERNESS WITH PALPATION TODAY AND PATIENT REPORTS SHE CAN LAY ON HER R SIDE FOR ABOUT AN HOUR NOW AT NIGHT. 30 SEC STS TEST: 12 - HANDS ON KNEES Plan Plan Plan: D/C Balance/Gait/Functional tests Balance/Special Test Scores Oswestry Low Back Score: 10 Goals Goals Goal 1:: DECREASE C/O LOW BACK AND LE SX'S BY AT LEAST 25% TO EASE ADL'S Goal Time Frame: 4-6 Weeks Goal Progress: Goal Met Goal 2:: IMPROVE PERSONAL CARE, LIFTING, WALKING, SITTING, STANDING, SLEEP, SOCIAL LIFE, TRAVEL AND WORK/HOMEMAKING FUNCTION EVIDENCED BY AT LEAST 5 POINT BACK OSWESTRY SCORE IMPROVEMENT. Goal Time Frame: 4-6 Weeks Goal Progress: Goal Met Goal 3:: PATIENT WILL BE INDEP WITH A HEP FOR CONTINUED IMPROVEMENT ONCE FORMAL PHYSICAL THEAPAPY CONCLUDES. Goal Time Frame: 4-6 Weeks Goal Progress: Goal Met Anticipated Interventions Anticipated Interventions Patient/Client Instruction: Educate patient on: Condition, Plan of Care and Risk Factors For the Purpose of:: To improve self management Therapeutic Exercise to Include: Strength training, Body mechanics, Postural training, Flexibilty training, Neuromotor development, In an aquatic setting and Dynamic Lumbar Stabilization For the Purpose of:: To decrease pain, To increase ROM, To improve muscle performance and motor function, To increase tolerance to activity/condition/position and To improve ability of physical actions for home/community/work/leisure Re-Evaluation Ending Re-evaluation ending: Please do not hesitate to contact me at [phone] by phone or if you have questions or concerns regarding this new plan of care! Sincerely, Jaclyn Murdock, PT, Cert MDT
--- NOTE | 2024-02-14 19:58 | HP.PTDCSUM ---
Discharge Summary D/C summary: It has been my pleasure to treat PAULINA SALEH referred by Dr. Kathy Barker MD, with the diagnosis of ACUTE R LBP W R SCIATICA AND CERVICAL STENOSIS WITH MYELOPATHY for a total of 20 visit(s). Discharge Date: 12/13/23 Please see the following information for a summary of their discharge status. Subjective Subjective: PATIENT REPORTS SHE HAS IMPROVED A LOT. SHE REPORTS SHE IS SITTING AND STANDING BETTER. SHE REPORTS SHE HAS LEARNED A LOT AND WHEN SHE APPLIES IT SHE FEELS BETTER. SHE REPORTS COMPLIANCE WITH HER HEP AND IT REALLY HELPS. SHE REPORTS HER R HIP STILL HURTS BUT IT IS GETTING LESS. SHE REPORTS SHE UNDERSTANDS SO MUCH BETTER NOW WHY SHE HURTS AND WHAT SHE CAN DO TO GET RELIEF AND SHE IS SO THANKFUL FOR THAT. SHE STATES SHE IS GRATEFUL TO HAVE EX'S THAT SHE CAN DO AT HER HOUSE AND AT WORK DURING DOWN TIME INSTEAD OF GOING TO A GYM. SHE ALSO REPORTS STARTING FLEXERIL ABOUT A WEEK AGO AND SINCE THEN SHE IS ABLE TO EXERCISE EVEN BETTER AND SLEEP BETTER. HAD MRI LAST WEEK IN [place] SHOWING PROGRESSION OF HER SAME CONDITION PER PATIENT REPORT. PATIENT REPORTS SHE HAS KNOWLEDGE AND TOOLS TO USE TO HELP HERSELF NOW AND SHE IS READY TO CONTINUE ON HER OWN BEFORE GOING BACK TO WORK NEXT MONTH. I FEEL SO MUCH BETTER THAN THE DAY I WALKED IN HERE. I FELT BROKEN THE DAY I WALKED IN HERE. Pain R hip: Pain Intensity (Out of 10): 3 Low Back: Pain Intensity (Out of 10): 3 L foot: Pain Intensity (Out of 10): 0 Overall Improvement % Improvement: 70 Objective Objective/Function: PATIENT WAS SEEN TODAY FOR RE-ASSESSMENT OF PROGRESS TOWARD THE SET PT GOALS AND THE NEED FOR FURTHER PHYSICAL THERAPY VS READINESS FOR DISCHARGE. SHE HAS RESPONDED REALLY WELL TO THERAPY AND IS INDEP WITH A HEP. SHE WOULD LIKE TO CONTINUE ON HER OWN NOW AND STATES THAT HER PAIN IS MANAGEABLE NOW. ALL PT GOALS HAVE BEEN MET AND SHE IS APPROPRIATE FOR DISCHARGE. UPON EXAM TODAY: ROM deficit: MILD LE HIP FLEXOR, HS AND CALF TIGHTNESS. TAYLOR HIP ROTATION ROM IS SYMMETRICAL NOW. Motor deficit: R HIP 4/5, KNEE 5/5, ANKLE 5/5. L HIP 4/5, KNEE 5/5, ANKLE 5/5. Dural Signs: NEGATIVE TAYLOR LE'S. Lumbar mvmt loss: flex - NIL ext - MOD R SG - MIN L SG - MOD PATIENT C/O INCREASE LOW BACK PAIN WITH LUMBAR ROM TESTING INTO EXT AND L SG. DENIES PAIN WITH FLEXION GOING SLOW AND NO INCREASED PAIN WITH R SG TESTING. Core strength: GOOD Palpation: ONLY MILD LOWER LUMBAR AND R HIP TENDERNESS WITH PALPATION TODAY AND PATIENT REPORTS SHE CAN LAY ON HER R SIDE FOR ABOUT AN HOUR NOW AT NIGHT. 30 [address]S TEST: 12 - HANDS ON KNEES Goals Goal 1:: DECREASE C/O LOW BACK AND LE SX'S BY AT LEAST 25% TO EASE ADL'S Goal Progress: Goal Met Goal 2:: IMPROVE PERSONAL CARE, LIFTING, WALKING, SITTING, STANDING, SLEEP, SOCIAL LIFE, TRAVEL AND WORK/HOMEMAKING FUNCTION EVIDENCED BY AT LEAST 5 POINT BACK OSWESTRY SCORE IMPROVEMENT. Goal Progress: Goal Met Goal 3:: PATIENT WILL BE INDEP WITH A HEP FOR CONTINUED IMPROVEMENT ONCE FORMAL PHYSICAL THEAPAPY CONCLUDES. Goal Progress: Goal Met Plan Plan: D/C D/C Information d/c sentence: If there are questions or concerns regarding this patient's physical therapy, please feel free to call me at [phone]. Thank you for the referral of this patient. Sincerely, Jaclyn Murdock, PT, Cert MDT Balance/Gait/Functional tests Balance/Special Test Scores Oswestry Low Back Score: 10 Improvement % Improvement: 70
== END 2023-12-10 19:00 | disposition home or self-care (01) ==
LOC: PT 11:00
DX: M48.02 Spinal stenosis, cervical region (principal); M54.41 Lumbago with sciatica, right side; G99.2 Myelopathy in diseases classified elsewhere
CPT/HCPCS: 97113; 97162; 97164